=== PATIENT | female | born 1950 | race Caucasian/White ===

== ENCOUNTER 2017-02-27 14:15 | Observation (INO) | payer MEDICARE, OTHER ==
[2017-02-27 15:22] LABS: CHLORIDE,CL 109 mmol/L (98-110); SODIUM,NA 141 mmol/L (136-146)
--- NOTE | 2017-02-27 15:31 | CT ---
EXAMINATION: Non contrast CT head. Coronal and sagittal reformats. HISTORY: Pain FINDINGS: No evidence of intra or extra axial hemorrhage, mass, midline shift, hydrocephalus or edema. There is mild generalized atrophy. Prominent periventricular and subcortical white matter hypodensities ar e noted, nonspecific however likely represent small vessel ischemic changes. There is a left anterio r parafalcine small calcified meningioma. No hypoattenuation changes in the major vascular territories to suggest acute infarct. No evidence of substantial vascular calcifications. Paranasal sinuses and mastoid air cells are well aerated w ithout substantial findings. There is leftward deviation of the nasal septum. Pituitary fossa appears unremarkable. The calvarium is intact. No evidence of skull fracture. IMPRESSION: 1. No acute intracranial findings. 2. Prominent periventricular and subcortical white matter hypodensities, most likely representing sm all vessel ischemic changes.
[2017-02-27] MEDS ORDERED: Adenosine 6 MG/2 ML SDV IVPUSH ONE (16:11)
--- NOTE | 2017-02-27 16:30 | EDM.PDOC ---
ED HISTORY OF PRESENT ILLNESS - General Chief Complaint: Cardiovascular Problem Stated Complaint: POSS VERTIGO Time Seen by Provider: 02/27/17 14:48 Source of Information: Reports: Patient History Limitations: Reports: No limitations - History of Present Illness INITIAL COMMENTS - FREE TEXT/NARRATIVE: HISTORY AND PHYSICAL: History of present illness: [T7-year-old female with a history of hypertension with which he is noncompliant with her medication over the last year and a half, borderline diabetes and strong family history of coronary artery disease. Father had his first [place] in his 40s and of a third [place] in his 60s. Patient now complains of lightheadedness and chest pain patient has never had a cardiac workup, no history of stress test or catheterization. His never seen a senior game designer. She's had a history of rapid heart rate but she doesn't know what it was called however it's been going on for more than 20 years and she was only treated in the hospital once. She states that typically when she gets palpitations over the last 20 years she would just go to bed. Today patient had mid chest pressure or shortness of breath diaphoresis. No nausea or vomiting or radiation of pain. Denies productive cough or fever. No pleuritic pain. It is not worse with movement. Pain is now resolved. While being evaluated emergency department patient evolved a sudden onset of tachycardia with heart rate in the 160s consistent with SVT. Patient took 4 baby aspirin today. Review of systems: As per history of present illness and below otherwise all systems reviewed and negative. Past medical history: As per history of present illness and as reviewed below otherwise noncontributory. Surgical history: As per history of present illness and as reviewed below otherwise noncontributory. Social history: No reported history of drug or alcohol abuse. Family history: As per history of present illness and as reviewed below otherwise noncontributory. Physical exam: HEENT: Atraumatic, normocephalic, pupils reactive, negative for conjunctival pallor or scleral icterus, mucous membranes moist, throat clear, neck supple, nontender, trachea midline. Lungs: Clear to auscultation, breath sounds equal bilaterally, chest nontender. Heart: S1S2, regular, negative for clicks, rubs, or JVD. On arrival heart rate 80 his. On reevaluation after onset Tachycardia 160s regular rhythm narrow complex Abdomen: Soft, nondistended, nontender. Negative for masses or hepatosplenomegaly. Negative for costovertebral tenderness. Pelvis: Stable nontender. Genitourinary: Deferred. Rectal: Deferred. Extremities: Atraumatic, negative for cords or calf pain. Neurovascular unremarkable. Neuro: Awake, alert, oriented. Cranial nerves II through XII unremarkable. Cerebellum unremarkable. Motor and sensory unremarkable throughout. Exam nonfo Diagnostics: [EKG #1 at 2:40 PM normal sinus rhythm at 84 normal axis no STEMI EKG #2 at 1603 supraventricular tachycardia at [address] findings no STEMI EKG #3 at 1617 after conversion normal sinus rhythm at 97 no STEMI Chest x-ray chronic changes no acute disease interpreted by me] Therapeutics: [Procedure: Administration of adenosine 6 mg rapid IV push by ER M.D. Patient sitting comfortably with SVT on monitor. After procedure explained and verbal consent obtained 6 mg of adenosine rapid IV push was performed by me in IV infusion site immediately adjacent to percutaneous location. Neuro saline flush immediately administered upstream in IV in line system. Patient manifested Subsequent transient bradycardia with transition to normal sinus rhythm in the 90s. Other than the transient side effect of malaise typical for adenosine administration patient tolerated well no complications Impression: [Chest pain Supraventricular tachycardia Uncontrolled hypertension] Plan: [Signs and symptoms consistent with chest pain a possible cardiac etiology in a patient with multiple cardiac risk factors. While in ED patient evolved SVT which by her description she has a more than 2 decades history of. Adenosine administered rapid IV push with resolution of SVT and conversion to normal sinus rhythm. Troponin negative remainder workup unremarkable. Nitroglycerin paste applied to anterior chest wall to address hypertension. Case discussed with Dr. Ortega hospitalist dermatology nurse practitioner who is aware of history and findings and agrees with observation telemetry admission to his service for further workup treatment Definitive disposition and diagnosis as appropriate pending reevaluation and review of above. - Related Data Allergies/ADRs: Allergies Allergy/AdvReac Type Severity Reaction Status Date / Time No Known Allergies Allergy Verified 02/27/17 14:43 Home Meds: Home Meds . 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: - Past Surgical History Female Surgical History: Reports: Hysterectomy Social & Family History - Family History Family Medical History: Unobtainable - Tobacco Use Smoking Status *Q: Never Smoker - Caffeine Use Caffeine Use: Reports: None - Recreational Drug Use Recreational Drug Use: No ED ROS GENERAL - Review of Systems Review Of Systems: See Below (History of present illness) ED EXAM, GENERAL - Physical Exam Exam: See Below (History of present illness) Course - Vital Signs Last Recorded V/S: Last Vital Signs Temp 37.6 C 02/27/17 15:54 Pulse 98 02/27/17 16:18 Resp 16 02/27/17 16:18 BP 197/129 H 02/27/17 16:18 Pulse Ox 95 02/27/17 16:18 - Orders/Labs/Meds Orders: Active Orders 24 hr Category Date Time Status EKG Documentation Completion [RC] STAT Care 02/27/17 14:50 Active Peripheral IV Care [RC] . DIRECTED Care 02/27/17 14:50 Active Chest 1V Frontal [CR] Stat Exams 02/27/17 16:21 Taken UA W/MICROSCOPIC [URIN] Stat Lab 02/27/17 16:40 Received Peripheral IV Insertion Adult [OM.PC] Stat Oth 02/27/17 14:50 Ordered Labs: Laboratory Tests 02/27/17 02/27/17 02/27/17 Range/Units 14:45 14:45 14:45 WBC 10.57 (4.0-11.0) K/uL RBC 5.22 (4.30-5.90) M/uL Hgb 15.2 (12.0-16.0) g/dL Hct 46.4 H (36.0-46.0) % MCV 88.9 (80.0-98.0) fL MCH 29.1 (27.0-32.0) pg MCHC 32.8 (31.0-37.0) g/dL RDW Std Deviation 47.4 (28.0-62.0) fl RDW Coeff of Jose Ramon 15 (11.0-15.0) % Plt Count 390 (150-400) K/uL MPV 10.00 (7.40-12.00) fL Neut % (Auto) 62.2 (48.0-80.0) % Lymph % (Auto) 27.5 (16.0-40.0) % Hood % (Auto) 8.8 (0.0-15.0) % Eos % (Auto) 1.2 (0.0-7.0) % Baso % (Auto) 0.3 (0.0-1.5) % Neut # (Auto) 6.6 H (1.4-5.7) K/uL Lymph # (Auto) 2.9 H (0.6-2.4) K/uL Hood # (Auto) 0.9 H (0.0-0.8) K/uL Eos # (Auto) 0.1 (0.0-0.7) K/uL Baso # (Auto) 0.0 (0.0-0.1) K/uL Nucleated RBC % 0.0 /100WBC Nucleated RBCs # 0 K/uL Sodium 141 (136-146) mmol/L Potassium 4.1 (3.5-5.1) mmol/L Chloride 109 (98-110) mmol/L Carbon Dioxide 20 L (21-31) mmol/L BUN 19 (6.0-23.0) mg/dL Creatinine 0.8 (0.6-1.5) mg/dL Est Cr Clr Drug Dosing 62.13 mL/min Estimated GFR (MDRD) > 60.0 ml/min Glucose 115 H (60-110) mg/dL Calcium 10.4 (8.8-10.8) mg/dL Total Bilirubin 0.3 (0.1-1.5) mg/dL AST 10 (5-40) IU/L ALT 10 (8-54) IU/L Alkaline Phosphatase 80 (40-150) Troponin I < 0.10 (0.0-0.29) NG/ML Total Protein 7.4 (6.0-8.0) g/dL Albumin 4.1 (3.4-4.8) g/dL Globulin 3.3 (2.0-3.5) g/dL Albumin/Globulin Ratio 1.2 L (1.3-2.8) Free T4 1.10 (0.7-1.48) ng/dL TSH 3rd Generation 1.30 (0.47-5.0) uIU/mL Meds: Medications Discontinued Medications Generic Name Dose Route Start Last Admin Trade Name Freq PRN Reason Stop Dose Admin Adenosine 6 mg 02/27/17 16:11 02/27/17 16:17 Adenocard IVPUSH 02/27/17 16:12 6 mg NOW ONE Administration Nitroglycerin 1 gm 02/27/17 16:55 Nitro-Bid 2% TOP 02/27/17 16:56 ONETIME ONE Departure - Departure Time of Disposition: 16:33 Disposition: Refer to Observation Condition: good Clinical Impression: Supraventricular tachycardia, Chest pain, Uncontrolled hypertension - My Orders Last 24 Hours: My Active Orders 02/27/17 14:50 EKG Documentation Completion [RC] STAT Peripheral IV Care [RC] . DIRECTED Peripheral IV Insertion Adult [OM.PC] Stat 02/27/17 16:21 Chest 1V Frontal [CR] Stat 02/27/17 16:40 UA W/MICROSCOPIC [URIN] Stat - Assessment/Plan Last 24 Hours: My Active Orders 02/27/17 14:50 EKG Documentation Completion [RC] STAT Peripheral IV Care [RC] . DIRECTED Peripheral IV Insertion Adult [OM.PC] Stat 02/27/17 16:21 Chest 1V Frontal [CR] Stat 02/27/17 16:40 UA W/MICROSCOPIC [URIN] Stat
[2017-02-27] MEDS ORDERED: Nitroglycerin 2% Oint 1 GM UD Packet TOP ONE (16:55)
[2017-02-27] MEDS ORDERED: Labetalol 5 MG/ML 5 ML Syringe IVPUSH ONE (18:23)
--- NOTE | 2017-02-27 18:37 | PCM.HP ---
H&P History of Present Illness - General Date of Service: 02/27/17 Admit Problem/Dx: Admission Diagnosis/Problem Admission Diagnosis/Problem Chest pain Source of Information: Patient History Limitations: Reports: No limitations - History of Present Illness Initial Comments - Free Text/Narative: 67 y o woman with decades long history of bouts of tachycardia accompanied by weakness and near syncopal feeling causing her to lie down and rest. Spell can last as long as 2 days. She had one in the ER with monitor showing narrow complex tachycardia at 150 Administration of adenosine was followed by sinus ameena at 30 She is aware of high blood pressure, untreated, though she took several of her sons losartan She thinks she might be diabetic and has stopped drinking soda Onset of Symptoms: Reports: other (half her lie) Duration of Symptoms: Reports: Day(s):, Getting worse Location: Reports: other (armpits ache) Severity: moderate Improves with: Reports: Rest (and time) - Related Data Allergies/Adverse Reactions: Allergies Allergy/AdvReac Type Severity Reaction Status Date / Time No Known Allergies Allergy Verified 02/27/17 14:43 Home Medications: Home Meds Aspirin 81 mg PO 02/27/17 [History] Losartan [Cozaar] 50 mg PO 02/27/17 [History] Past Medical History HEENT History: Reports: None Cardiovascular History: Reports: Hypertension Respiratory History: Reports: None Gastrointestinal History: Reports: None 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: : 3 Para: 3 Psychiatric History: Reports: Depression Endocrine/Metabolic History: Reports: Other (see below) Other Endocrine/Metabolic History: Verbalized she feels she has diabetes, but not diagnosed Oncologic (Cancer) History: Reports: None - Infectious Disease History Infectious Disease History: Reports: Chicken pox - Past Surgical History Head Surgeries/Procedures: Reports: None HEENT Surgical History: Reports: Tonsillectomy Cardiovascular Surgical History: Reports: None Respiratory Surgical History: Reports: None Female Surgical History: Reports: Hysterectomy Endocrine Surgical History: Reports: None Social & Family History - Family History Family Medical History: Noncontributory Oncologic: Reports: Other (see below) (mother melanoma [id number]) - Tobacco Use Smoking Status *Q: Never Smoker Second Hand Smoke Exposure: No - Caffeine Use Caffeine Use: Reports: None - Recreational Drug Use Recreational Drug Use: No H&P Review of Systems - Review of Systems: Review Of Systems: See Below General: Reports: no symptoms HEENT: Reports: no symptoms Pulmonary: Reports: Shortness of Breath Cardiovascular: Reports: chest pain (axillae with tachycardia) Gastrointestinal: Reports: No symptoms Genitourinary: Reports: no symptoms Musculoskeletal: Reports: joint pain (knees) Exam - Exam Exam: See Below - Vital Signs Vital Signs: Last Vital Signs Temp 36.6 C 02/27/17 17:30 Pulse 88 02/27/17 17:37 Resp 16 02/27/17 17:37 BP 187/111 H 02/27/17 17:37 Pulse Ox 99 02/27/17 17:37 Weight: 101.423 kg - Exam General: alert, oriented HEENT: Conjunctiva clear Neck: supple, thyromegaly (questionsable, seems very full base of throat, also tender w/o distinct borders) Lungs: Decreased breath sounds Cardiovascular: regular rate Abdomen: normal bowel sounds (Female) Exam: Deferred Rectal (Female) Exam: Deferred Back Exam: normal inspection Psychiatric: alert, normal affect - Patient Data Lab Results last 24 hrs: Laboratory Results - last 24 hr 02/27/17 Range/Units 16:40 Urine Color YELLOW Urine Appearance CLEAR Urine pH 6.0 (5.0-8.0) Ur Specific [place] 1.015 (1.001-1.035) Urine Protein NEGATIVE (NEGATIVE) mg/dL Urine Glucose (UA) NEGATIVE (NEGATIVE) mg/dL Urine Ketones NEGATIVE (NEGATIVE) mg/dL Urine Occult Blood NEGATIVE (NEGATIVE) Urine Nitrite NEGATIVE (NEGATIVE) Urine Bilirubin NEGATIVE (NEGATIVE) Urine Urobilinogen 0.2 (<2.0) EU/dL Ur Leukocyte Esterase NEGATIVE (NEGATIVE) Urine RBC 0-1 (0-2/HPF) Urine WBC 0-2 (0-5/HPF) Ur Epithelial Cells OCCASIONAL (NONE-FEW) Urine Bacteria RARE (NEGATIVE) Result Diagrams: 02/27/17 14:45 02/27/17 14:45 *Q Meaningful Use (ADM) - VTE *Q VTE Criteria *Q: - Stroke *Q Stroke Criteria *Q: - AMI *Q AMI Criteria *Q: - Problem List (1) Obesity SNOMED Code(s): 370784002 ICD Code: E66.9 - OBESITY, UNSPECIFIED Status: Acute Current Visit: Yes Problem List Initiated/Reviewed/Updated: Yes Orders Last 24hrs: Active Orders 24 hr Category Date Time Status Labetalol [Normodyne] Med 02/27/17 18:23 Once 5 mg IVPUSH ONETIME ONE Medication Orders Labetalol HCl (Normodyne) 5 mg IVPUSH ONETIME ONE PRN Reason: Protocol Stop: 02/27/17 18:24 Assessment/Plan Comment:: hypertension documented SVT obesity will radiographer cardiac catheterization blood pressure control
[2017-02-27] MEDS ORDERED: Acetaminophen 325 MG Tab PO PRN (19:08)
[2017-02-27] MEDS: Enoxaparin 40 MG/0.4 ML Syringe SUBCUT SCH (20:19)
[2017-02-28] MEDS ORDERED: Labetalol 100 MG Tab PO ONE (04:00)
[2017-02-28] MEDS ORDERED: Labetalol 100 MG Tab PO SCH (09:00)
--- NOTE | 2017-02-28 10:55 | CR ---
EXAM DATE: 02/27/17 PATIENT'S AGE: 67 Patient: OTIS JIMENES Facility: [place], [place] Site . Site : [id number] Study: XRay Chest [id number]/2/2017 4:46:23 PM Ordering Physician: Rodger Sampson Final Report: INDICATION: Palpitations. TECHNIQUE: AP portable chest. COMPARISON: January 23, 2014. FINDINGS: Suboptimal radiograph. The image is underpenetrated. The lungs are grossly clear. There may be an esophageal hiatal hernia behind the heart. Overall heart size is toward the upper limit of normal accentuated by the portable technique. IMPRESSION: 1. Suboptimal radiograph. 2. Probable hiatal hernia behind the heart. 3. Repeat imaging including a lateral chest x-ray versus chest CT recommended. 4. Overall heart size is toward the upper limit of normal accentuated by the portable technique. Dictated by Luan Long MD @ 02/27/2017 4:56:53 PM Dictated by: uLan Long MD @ 02/27/2017 16:57:05 (Electronic Signature) Report Signed by Proxy. [facility] JO[facility] MEDICAL CENTERDebora
--- NOTE | 2017-02-28 11:01 | PCM.PN ---
- General Info Date of Service: 02/28/17 Admission Dx/Problem (Free Text): Admission Diagnosis/Problem Admission Diagnosis/Problem Chest pain Subjective Update: Sleeping this am, reports this morning had some palpitations. No telemetry evidence of SVT, slight tachycardia low 100s. No SOB or chest discomfort at time of assessment. Did have some during the feelings of palpitations. Functional Status: Reports: pain controlled, tolerating diet, ambulating, urinating - Review of Systems General: Reports: No Symptoms. Denies: Fever HEENT: Reports: no symptoms Pulmonary: Reports: no symptoms. Denies: shortness of breath, pleuritic chest pain, cough, sputum Cardiovascular: Reports: No Symptoms. Denies: Chest Pain, Palpitations Gastrointestinal: Reports: No symptoms. Denies: Abdominal pain, Nausea, Vomiting Genitourinary: Reports: no symptoms Musculoskeletal: Reports: no symptoms Skin: Reports: no symptoms Neurological: Reports: No Symptoms Psychiatric: Reports: no symptoms - Patient Data Vitals - most recent: Last Vital Signs Temp 99.1 F 02/28/17 08:24 Pulse 75 02/28/17 10:00 Resp 16 02/28/17 08:24 BP 148/81 H 02/28/17 10:00 Pulse Ox 93 L 02/28/17 08:24 Weight - most recent: 101.423 kg I&O - last 24 hours: Intake & Output 02/27/17 02/28/17 02/28/17 22:59 06:59 14:59 Intake Total 25 Output Total 750 Balance -725 Lab Results last 24 hrs: Laboratory Results - last 24 hr 02/27/17 02/28/17 02/28/17 Range/Units 16:40 04:25 05:21 Magnesium 1.9 (1.5-2.3) mEq/L Troponin I < 0.10 (0.0-0.29) NG/ML Urine Color YELLOW Urine Appearance CLEAR Urine pH 6.0 (5.0-8.0) Ur Specific [place] 1.015 (1.001-1.035) Urine Protein NEGATIVE (NEGATIVE) mg/dL Urine Glucose (UA) NEGATIVE (NEGATIVE) mg/dL Urine Ketones NEGATIVE (NEGATIVE) mg/dL Urine Occult Blood NEGATIVE (NEGATIVE) Urine Nitrite NEGATIVE (NEGATIVE) Urine Bilirubin NEGATIVE (NEGATIVE) Urine Urobilinogen 0.2 (<2.0) EU/dL Ur Leukocyte Esterase NEGATIVE (NEGATIVE) Urine RBC 0-1 (0-2/HPF) Urine WBC 0-2 (0-5/HPF) Ur Epithelial Cells OCCASIONAL (NONE-FEW) Urine Bacteria RARE (NEGATIVE) Med Orders - Current: Current Medications Acetaminophen (Tylenol) 650 mg PO Q4H PRN PRN Reason: Pain (Mild 1-3)/fever Enoxaparin Sodium (Lovenox) 40 mg SUBCUT Q24H [facility] Last Admin: 02/27/17 20:19 Dose: 40 mg Labetalol HCl (Normodyne) 100 mg PO BID [facility] Last Admin: 02/28/17 10:00 Dose: 100 mg Discontinued Medications Adenosine (Adenocard) 6 mg IVPUSH NOW ONE Stop: 02/27/17 16:12 Last Admin: 02/27/17 16:17 Dose: 6 mg Labetalol HCl (Normodyne) 5 mg IVPUSH ONETIME ONE PRN Reason: Protocol Stop: 02/27/17 18:24 Last Admin: 02/27/17 18:41 Dose: 5 mg Labetalol HCl (Normodyne) 50 mg PO ONETIME ONE Stop: 02/28/17 04:01 Last Admin: 02/28/17 04:12 Dose: 50 mg Nitroglycerin (Nitro-Bid 2%) 1 gm TOP ONETIME ONE Stop: 02/27/17 16:56 Last Admin: 02/27/17 17:02 Dose: 1 gm - Exam General: alert, oriented, cooperative Lungs: Clear to auscultation, Normal respiratory effort Cardiovascular: Regular Rate, Regular Rhythm Abdomen: bowel sounds present, soft, no tenderness, no distension Extremities: no edema, normal pulses, no tenderness/swelling Skin: warm, dry, intact Neurological: no new focal deficit Psy/Mental Status: alert, normal affect, normal mood - Problem List & Annotations (1) Supraventricular tachycardia SNOMED Code(s): 4739303 Code(s): I47.1 - SUPRAVENTRICULAR TACHYCARDIA Status: Acute Current Visit : Yes (2) Chest pain SNOMED Code(s): 92139039 Code(s): R07.9 - CHEST PAIN, UNSPECIFIED Status: Acute Current Visit: Yes Qualifiers: Chest pain type: unspecified Qualified Code(s): R07.9 - Chest pain, unspecified (3) Obesity SNOMED Code(s): 389108609 Code(s): E66.9 - OBESITY, UNSPECIFIED Status: Chronic Current Visit: Yes (4) Uncontrolled hypertension SNOMED Code(s): 22687575 Code(s): I10 - ESSENTIAL (PRIMARY) HYPERTENSION Status: Chronic Current Visit: Yes - Problem List Review Problem List Initiated/Reviewed/Updated: Yes - My Orders Last 24 Hours: My Active Orders 02/28/17 08:08 Consult to Physician [CONS] Routine 02/28/17 08:09 Notify Provider Consults [RC] ASDIRECTED - Plan Plan:: This 67 year old female admitted with chest discomfort and noted SVT in ED 1. SVT: Troponins negative. Given Adenosine in ED with return to SR 90s. classroom monitor reveals SR to ST low 100s. Will consult Dr Hawthorne. Labetolol ordered 100 mg BID. 2. HTN: Will monitor on Labetolol has not taken medication for years, since Dr Ortiz left and has not followed up. VTE: Lovenox. Dispo: today or tomorrow am pending cardiology consultation
[2017-02-28] MEDS: Metoprolol Tartrate 50 MG Tab PO SCH ×2 (14:46→20:46)
[2017-02-28] MEDS ORDERED: amLODIPine 5 MG Tab PO SCH (16:30)
[2017-02-28] MEDS: Enoxaparin 40 MG/0.4 ML Syringe SUBCUT SCH (20:49)
--- NOTE | 2017-02-28 21:59 | CONS ---
DATE OF CONSULTATION: DATE OF : 1950 PRIMARY CARE PHYSICIAN: None PCP REASON FOR CONSULTATION: Tachycardia. HISTORY OF PRESENT ILLNESS: This is a 67-year-old female, who has had a long history of tachycardia, but never been seen by any doctor who presented to the hospital at this time due to feeling dizzy, palpitation, shortness of breath. In the emergency room, she was found to have tachycardia, narrow complex tachycardia with a heart rate of 150 and she was given adenosine and she was converted to sinus bradycardia at 30s. She also initially was found to be hypertensive and she was given labetalol and right now the blood pressure is better controlled, but is still high in the range of 150 to 160. She denied a history of SVT, however, she has symptom of palpitation for years, never been seen by a doctor. She stated that when she comes to the emergency room, she was told to do the vagal maneuver, however, if not succeeded to convert to sinus rhythm. Currently, she lives in [place] and because she has to fix her plumbing in her house and she is not very active. She can take care of herself, but she cannot take care of her house. She can only walk for about a block and gets short of breath and with the palpitation that she feels, she also feels a pounding heart as well as chest pressure. She stated that her chest pressure was upper chest wall radiating to her neck, her jaws, and her arms lasting for 15 minute. She never had a stress test before. She has a history of hypertension, she is supposed to be taking a course, however, she has not taken it for a long time and sometime she gets leg swelling as well. No headache. No fever. No nausea. No vomiting. REVIEW OF SYSTEMS: 12-point review of systems seem to be negative except as indicated in HPI. PAST MEDICAL HISTORY: Including hypertension. SOCIAL HISTORY: She denies smoking, drinking, or drug use. FAMILY HISTORY: Father had a history of heart attack at age of 70. CURRENT MEDICATION: Include, labetalol 100 mg twice a day. PHYSICAL EXAMINATION: VITAL SIGNS: Blood pressure 144/66, heart rate of 68. Temperature 37.3, O2 saturation 93 on 2 L. HEENT: No pallor. No jaundice. No JVD. HEART: Normal S1, S2. No murmur. LUNGS: Clear. ABDOMEN: Soft, nontender. Bowel sounds are present. No hepatosplenomegaly. EXTREMITIES: Legs have questionable edema. INVESTIGATIONS: CBC showed WBC of 10, hematocrit of 46, hemoglobin 15, platelet is 390. Sodium 141, potassium 4.1, chloride 109 bicarb 20, BUN 19, creatinine 0.8, glucose 115, magnesium 1.9. Troponin is negative. Free T4 is 1.1. Urinalysis is negative. EKG shows sinus rhythm, but EKG in emergency room shows narrow complex tachycardia, most likely AVNRT. ASSESSMENT/PLAN: This is a 67-year-old female, presented to hospital with SVT, symptomatic with chest pain as well. Because of the chest pain with fast heart rate, I would recommend to do a stress test, but this can be done as an outpatient and I would also do an echocardiogram. Regarding her tachycardia and her blood pressure, I will start her on a beta jennifer and possibly the calcium channel jennifer as well. I will follow her. Thank you for the consultation. CHRISTELLE MCDONALD /[id number]
[2017-03-01] MEDS ORDERED: amLODIPine 5 MG Tab PO SCH (09:00)
[2017-03-01] MEDS: Metoprolol Tartrate 50 MG Tab PO SCH (09:26)
[2017-03-01 09:32] VITALS: BP 158/111
--- NOTE | 2017-03-01 10:48 | PCM.DCSUM1 ---
Discharge Summary - Hospital Course Brief History: This 67 year old woman with pmh of HTN uncontrolled and long history of bouts of tachycardia accompanied by weakness and near syncopal feeling causing her to lie down and rest. Spells can last as long as 2 days. She had one in the ER with monitor showing narrow complex tachycardia at 150. Administration of adenosine was followed by sinus ameena at 30 She is aware of high blood pressure, untreated, though she took several of her sons losartan She thinks she might be diabetic and has stopped drinking soda. In the ED labwork WNL, troponin negative, and Ua negative. CXR showed heart of upper limit size. She was admitted due to chest discomfort and SVT with consultation to Cardiology. - Discharge Data Discharge Date: 03/01/17 Discharge Disposition: Home, Self-Care 01 Condition: Good - Discharge Diagnosis/Problem(s) (1) Supraventricular tachycardia SNOMED Code(s): 5068082 ICD Code: I47.1 - SUPRAVENTRICULAR TACHYCARDIA Status: Acute Current Visit: Yes (2) Chest pain SNOMED Code(s): 63130592 ICD Code: R07.9 - CHEST PAIN, UNSPECIFIED Status: Resolved Current Visit : Yes Qualifiers: Chest pain type: unspecified Qualified Code(s): R07.9 - Chest pain, unspecified (3) Obesity SNOMED Code(s): 621025881 ICD Code: E66.9 - OBESITY, UNSPECIFIED Status: Chronic Current Visit: Yes (4) Uncontrolled hypertension SNOMED Code(s): 25457805 ICD Code: I10 - ESSENTIAL (PRIMARY) HYPERTENSION Status: Chronic Current Visit: Yes - Patient Summary/Data Consults: Consultations 02/28/17 08:08 Consult to Physician [CONS] Routine - Patient Instructions Diet: Heart Healthy Diet Activity: As Tolerated, No Strenuous Activities (until stress test with Dr. Hawthorne) Driving: May Drive Today Notify Provider of: Fever, Increased Pain, Swelling and Redness, Drainage, Nausea and/or Vomiting - Discharge Plan Prescriptions/Med Rec: Metoprolol Tartrate [Lopressor] 50 mg PO Q12HR #60 tablet amLODIPine [Norvasc] 10 mg PO BEDTIME #30 tablet Home Medications: Home Meds Aspirin 81 mg PO 02/27/17 [History] Metoprolol Tartrate [Lopressor] 50 mg PO Q12HR #60 tablet 03/01/17 [Rx] amLODIPine [Norvasc] 10 mg PO BEDTIME #30 tablet 03/01/17 [Rx] Patient Handouts: Paroxysmal Supraventricular Tachycardia, [id number], Metoprolol tablets, Nonspecific Chest Pain, [id number], Amlodipine tablets Referrals: [facility] [Outside] [facility] [Outside] Johnny Hawthorne MD [Physician] - 03/12/17 9:00 am Kim Saab DO [Physician] - 03/12/17 10:00 am - Discharge Summary/Plan Comment DC Time >30 min.: No Discharge Summary/Plan Comment: Discharge diagnoses SVT Chest discomfort-resolved uncontrolled HTN Obesity Genia was admitted and monitored on telemetry. Troponins negative, no further SVT events. Labetolol was initially started and then transitioned to Metoprolol by Cardiology. Dr. Hawthorne also started Norvasc for BP. She has been free of chest discomfort since admission. A1c noted to be 6.1 Triglycerides 308, LDL 130, and HDL 31. Encouraged healthy lifestyle changes. Dr Hawthorne will follow up with pending ECHO and arrange for stress test as an outpatient. I will also arrange appointment with a new PCP for her to establish care, she has requested Dr Saab. HR remains SR, BP has decreased to 140/90s from 200s/ 100s. She will be discharged home today. ECHO pending. Appointments are arranged with Dr. Hawthorne and Dr Saab. She is to return to ED or clinic if concerns should arise. - General Info Date of Service: 03/01/17 Admission Dx/Problem (Free Text: Admission Diagnosis/Problem Admission Diagnosis/Problem Chest pain Subjective Update: Feeling much better today. no palpitations,no telemetry evidence of SVT. No SOB or chest discomfort at time of assessment. Eager for discharge home today. Functional Status: Reports: pain controlled, tolerating diet, ambulating - Review of Systems General: Reports: No Symptoms. Denies: Fever HEENT: Reports: no symptoms. Denies: ear pain, sinus congestion, sore throat, visual changes Pulmonary: Reports: no symptoms. Denies: shortness of breath, cough, sputum Cardiovascular: Reports: No Symptoms. Denies: Chest Pain, Palpitations, Edema Gastrointestinal: Reports: No symptoms. Denies: Abdominal pain, Nausea, Vomiting Genitourinary: Reports: no symptoms Musculoskeletal: Reports: no symptoms Skin: Reports: no symptoms Neurological: Reports: No Symptoms Psychiatric: Reports: no symptoms - Patient Data Vitals - Most Recent: Last Vital Signs Temp 97.5 F 03/01/17 08:00 Pulse 72 03/01/17 09:26 Resp 18 03/01/17 08:00 BP 149/99 H 03/01/17 09:26 Pulse Ox 94 L 03/01/17 08:00 Weight - Most Recent: 101.423 kg I&O - Last 24 hours: Intake & Output 02/28/17 03/01/17 03/01/17 22:59 06:59 14:59 Intake Total 300 500 Output Total 400 350 Balance -100 150 Lab Results - Last 24 hrs: Laboratory Results - last 24 hr 02/28/17 03/01/17 03/01/17 Range/Units 11:20 04:25 04:25 Hemoglobin A1c 6.1 H (0.0-6.0) % Troponin I < 0.10 (0.0-0.29) NG/ML Triglycerides 308 H (10-190) mg/dL Cholesterol 223 (131-240) mg/dL LDL Cholesterol, Calc 130 (60-180) mg/dL VLDL Cholesterol 62 H (5-55) mg/dL HDL Cholesterol 31 L (40-80) mg/dL Cholesterol/HDL Ratio 7.2 H (3.3-6.0) Med Orders - Current: Current Medications Acetaminophen (Tylenol) 650 mg PO Q4H PRN PRN Reason: Pain (Mild 1-3)/fever Last Admin: 02/28/17 15:09 Dose: 650 mg Amlodipine Besylate (Norvasc) 10 mg PO DAILY [facility] Last Admin: 03/01/17 09:26 Dose: 10 mg Enoxaparin Sodium (Lovenox) 40 mg SUBCUT Q24H [facility] Last Admin: 02/28/17 20:49 Dose: 40 mg Metoprolol Tartrate (Lopressor) 50 mg PO Q12HR [facility] Last Admin: 03/01/17 09:26 Dose: 50 mg Discontinued Medications Adenosine (Adenocard) 6 mg IVPUSH NOW ONE Stop: 02/27/17 16:12 Last Admin: 02/27/17 16:17 Dose: 6 mg Amlodipine Besylate (Norvasc) 5 mg PO DAILY [facility] Last Admin: 02/28/17 16:29 Dose: 5 mg Labetalol HCl (Normodyne) 5 mg IVPUSH ONETIME ONE PRN Reason: Protocol Stop: 02/27/17 18:24 Last Admin: 02/27/17 18:41 Dose: 5 mg Labetalol HCl (Normodyne) 50 mg PO ONETIME ONE Stop: 02/28/17 04:01 Last Admin: 02/28/17 04:12 Dose: 50 mg Labetalol HCl (Normodyne) 100 mg PO BID [facility] Last Admin: 02/28/17 10:00 Dose: 100 mg Nitroglycerin (Nitro-Bid 2%) 1 gm TOP ONETIME ONE Stop: 02/27/17 16:56 Last Admin: 02/27/17 17:02 Dose: 1 gm - Exam Quality Assessment: Denies: supplemental oxygen General: Reports: alert, oriented, cooperative HEENT: Reports: Pupils equal, Pupils reactive, EOMI, Mucous membr. moist/pink Neck: Reports: supple Lungs: Reports: Clear to auscultation, Normal respiratory effort Cardiovascular: Reports: Regular Rate, Regular Rhythm, No Murmurs Abdomen: Reports: bowel sounds present, soft, no tenderness, no distension Extremities: Reports: no edema, normal pulses Neurological: Reports: no new focal deficit Psy/Mental Status: Reports: alert, normal affect, normal mood *Q Meaningful Use (DIS) - VTE *Q VTE Criteria *Q: - Stroke *Q Stroke Criteria *Q: - AMI *Q AMI Criteria *Q:
--- NOTE | 2017-03-01 12:46 | PCM.PN ---
- General Info Admission Dx/Problem (Free Text): 67F HLP HTN SVT Subjective Update: feels ok BP was better controlled with metoprolol 50 BID, amlodipine 10 Functional Status: Reports: pain controlled - Review of Systems General: Reports: No Symptoms HEENT: Reports: no symptoms Pulmonary: Reports: no symptoms Cardiovascular: Reports: No Symptoms Gastrointestinal: Reports: No symptoms Genitourinary: Reports: no symptoms Musculoskeletal: Reports: no symptoms - Patient Data Vitals - most recent: Last Vital Signs Temp 36.4 C 03/01/17 08:00 Pulse 72 03/01/17 09:26 Resp 18 03/01/17 08:00 BP 149/99 H 03/01/17 09:26 Pulse Ox 94 L 03/01/17 08:00 Weight - most recent: 101.423 kg I&O - last 24 hours: Intake & Output 02/28/17 03/01/17 03/01/17 22:59 06:59 14:59 Intake Total 300 500 Output Total 400 350 Balance -100 150 Lab Results last 24 hrs: Laboratory Results - last 24 hr 03/01/17 03/01/17 Range/Units 04:25 04:25 Hemoglobin A1c 6.1 H (0.0-6.0) % Triglycerides 308 H (10-190) mg/dL Cholesterol 223 (131-240) mg/dL LDL Cholesterol, Calc 130 (60-180) mg/dL VLDL Cholesterol 62 H (5-55) mg/dL HDL Cholesterol 31 L (40-80) mg/dL Cholesterol/HDL Ratio 7.2 H (3.3-6.0) Med Orders - Current: Current Medications Acetaminophen (Tylenol) 650 mg PO Q4H PRN PRN Reason: Pain (Mild 1-3)/fever Last Admin: 02/28/17 15:09 Dose: 650 mg Amlodipine Besylate (Norvasc) 10 mg PO DAILY [facility] Last Admin: 03/01/17 09:26 Dose: 10 mg Enoxaparin Sodium (Lovenox) 40 mg SUBCUT Q24H [facility] Last Admin: 02/28/17 20:49 Dose: 40 mg Metoprolol Tartrate (Lopressor) 50 mg PO Q12HR [facility] Last Admin: 03/01/17 09:26 Dose: 50 mg Discontinued Medications Adenosine (Adenocard) 6 mg IVPUSH NOW ONE Stop: 02/27/17 16:12 Last Admin: 02/27/17 16:17 Dose: 6 mg Amlodipine Besylate (Norvasc) 5 mg PO DAILY [facility] Last Admin: 02/28/17 16:29 Dose: 5 mg Labetalol HCl (Normodyne) 5 mg IVPUSH ONETIME ONE PRN Reason: Protocol Stop: 02/27/17 18:24 Last Admin: 02/27/17 18:41 Dose: 5 mg Labetalol HCl (Normodyne) 50 mg PO ONETIME ONE Stop: 02/28/17 04:01 Last Admin: 02/28/17 04:12 Dose: 50 mg Labetalol HCl (Normodyne) 100 mg PO BID [facility] Last Admin: 02/28/17 10:00 Dose: 100 mg Nitroglycerin (Nitro-Bid 2%) 1 gm TOP ONETIME ONE Stop: 02/27/17 16:56 Last Admin: 02/27/17 17:02 Dose: 1 gm - Exam General: alert, oriented HEENT: Pupils equal, Pupils reactive Neck: supple Lungs: Clear to auscultation Cardiovascular: Regular Rate Abdomen: bowel sounds present (Female) Exam: Normal external exam Back Exam: normal inspection EKG INTERPRETATION Rhythm: NSR - Problem List Review Problem List Initiated/Reviewed/Updated: Yes - My Orders Last 24 Hours: My Active Orders 03/01/17 09:00 amLODIPine [Norvasc] 10 mg PO DAILY 03/01/17 16:20 Echo Comp wo Cont [US] Routine - Plan Plan:: 67F SVT HTN HLP preDM, with chest pain during SVT 1. SVT will continue metoprolol 50 BID 2. HTN will continue metoprolol 50 BID, amlodipine 10 3 HLP will recommend crestor 10 daily 4. CP with SVT will schedule for lexiscan as outpt
--- NOTE | 2017-03-05 18:54 | ECHO ---
The echocardiogram report can be seen in this patient's EMR in the Reports section. YANG
== END 2017-03-01 15:35 | disposition home or self-care (01) ==
LOC: MW.ED 14:15 → MW.MS 16:30 → UNDOADMOB 16:34 → MW.MS 16:34
PROVIDERS: ADMIT Internal Medicine; ATTEND Internal Medicine
DX: I47.1 Supraventricular tachycardia (principal); R07.9 Chest pain, unspecified; E66.9 Obesity, unspecified; R42 Dizziness and giddiness; I10 Essential (primary) hypertension; Z79.82 Long term (current) use of aspirin; Z79.899 Other long term (current) drug therapy; Z90.710 Acquired absence of both cervix and uterus; Z90.89 Acquired absence of other organs; Z82.49 Family history of ischemic heart disease and other diseases of the circulatory system
CPT/HCPCS: 36415; 70450; 71010; 80053; 80061; 81001; 83036; 83735; 84439; 84443; 84484; 85025; 93005; 93306; 96372; 96374; 96375; 99285; A9270; G0378; J0153; J1650

== ENCOUNTER 2017-07-05 10:32 | Emergency (ER) | payer MEDICARE ==
[2017-07-05] MEDS ORDERED: Acetaminophen/oxyCODONE 325-10 MG Tab PO ONE (10:43)
--- NOTE | 2017-07-05 10:55 | EDM.PDOC ---
ED HPI GENERAL MEDICAL PROBLEM - General Chief Complaint: General Stated Complaint: HIGH BLOOD PREESURE Time Seen by Provider: 07/05/17 10:49 Source of Information: Reports: Patient, Family History Limitations: Reports: No Limitations - History of Present Illness INITIAL COMMENTS - FREE TEXT/NARRATIVE: \History of present illness: [67-year-old female comes in status post visit to dentist. Patient was quite hypertensive at [place] and he felt unable to do her oral surgery secondary to her uncontrolled blood pressure and sent her directly to us calling us to apprise her of her impending arrival. Upon arrival patients blood pressure was less than the 212/148 in the 200/100 obtained in the dentist office. Patient indicates the only pain she has is her teeth and indicates that she has been having chronic dizziness and thought it was due to uncontrolled hypertension.] Review of systems: As per history of present illness and below otherwise all systems reviewed and negative. Past medical history: As per history of present illness and as reviewed below otherwise noncontributory. Surgical history: As per history of present illness and as reviewed below otherwise noncontributory. Social history: No reported history of drug or alcohol abuse. Family history: As per history of present illness and as reviewed below otherwise noncontributory. Physical exam: HEENT: Atraumatic, normocephalic, pupils reactive, negative for conjunctival pallor or scleral icterus, mucous membranes moist, throat clear, neck supple, nontender, trachea midline. Lungs: Clear to auscultation, breath sounds equal bilaterally, chest nontender. Heart: S1S2, regular, negative for clicks, rubs, or JVD. Abdomen: Soft, nondistended, nontender. Negative for masses or hepatosplenomegaly. Negative for costovertebral tenderness. Pelvis: Stable nontender. Genitourinary: Deferred. Rectal: Deferred. Extremities: Atraumatic, negative for cords or calf pain. Neurovascular unremarkable. Neuro: Awake, alert, oriented. Cranial nerves II through XII unremarkable. Cerebellum unremarkable. Motor and sensory unremarkable throughout. Exam nonfocal. Diagnostics: [CBC, CMP, EKG] Therapeutics: [Percocet, Augmentin, Zofran] Impression: [#1 hypertension, #2 dental caries with abscess and pain #3 vertigo] Plan: [Follow-up appointment scheduled with Dr. Nardozzi tomorrow for blood pressure control as well as vertigo] Definitive disposition and diagnosis as appropriate pending reevaluation and review of above. - Related Data Allergies Allergy/AdvReac Type Severity Reaction Status Date / Time No Known Allergies Allergy Verified 07/05/17 10:36 Home Meds: Home Meds Aspirin 81 mg PO Q8HR 02/27/17 [History] Metoprolol Tartrate [Lopressor] 50 mg PO Q12HR #60 tablet 03/01/17 [Rx] Rosuvastatin [Crestor] 10 mg PO DAILY #30 tablet 03/01/17 [Rx] amLODIPine [Norvasc] 10 mg PO BEDTIME #30 tablet 03/01/17 [Rx] Carbamide Peroxide [Debrox] 4 drop OT DAILY #1 bottle 07/05/17 [Rx] Meclizine [Antivert] 25 mg PO Q6H #30 tablet 07/05/17 [Rx] Past Medical History HEENT History: Reports: None Cardiovascular History: Reports: Hypertension Respiratory History: Reports: None Gastrointestinal History: Reports: None 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: Psychiatric History: Reports: Depression Endocrine/Metabolic History: Reports: Other (See Below) Other Endocrine/Metabolic History: Verbalized she feels she has diabetes, but not diagnosed Oncologic (Cancer) History: Reports: None - Infectious Disease History Infectious Disease History: Reports: Chicken Pox - Past Surgical History Head Surgeries/Procedures: Reports: None HEENT Surgical History: Reports: Tonsillectomy Cardiovascular Surgical History: Reports: None Respiratory Surgical History: Reports: None Female Surgical History: Reports: Hysterectomy Social & Family History - Family History Family Medical History: Noncontributory Oncologic: Reports: Other (See Below) - Tobacco Use Smoking Status *Q: Never Smoker Second Hand Smoke Exposure: No - Caffeine Use Caffeine Use: Reports: None - Recreational Drug Use Recreational Drug Use: No ED ROS GENERAL - Review of Systems Review Of Systems: See Below (See history of present illness) ED EXAM, GENERAL - Physical Exam Exam: See Below (The history of present illness) Course - Vital Signs Last Recorded V/S: Last Vital Signs Temp 36.8 C 07/05/17 11:55 Pulse 83 07/05/17 11:55 Resp 12 07/05/17 11:55 BP 159/92 H 07/05/17 11:55 Pulse Ox 92 L 07/05/17 11:55 - Orders/Labs/Meds Orders: Active Orders 24 hr Category Date Time Status EKG Documentation Completion [RC] STAT Care 07/05/17 10:34 Active Labs: Laboratory Tests 07/05/17 07/05/17 Range/Units 10:44 10:44 WBC 11.49 H (4.0-11.0) K/uL RBC 5.33 (4.30-5.90) M/uL Hgb 15.6 (12.0-16.0) g/dL Hct 47.4 H (36.0-46.0) % MCV 88.9 (80.0-98.0) fL MCH 29.3 (27.0-32.0) pg MCHC 32.9 (31.0-37.0) g/dL RDW Std Deviation 47.4 (28.0-62.0) fl RDW Coeff of Jose Ramon 15 (11.0-15.0) % Plt Count 408 H (150-400) K/uL MPV 10.00 (7.40-12.00) fL Neut % (Auto) 59.9 (48.0-80.0) % Lymph % (Auto) 29.5 (16.0-40.0) % [place] % (Auto) 9.0 (0.0-15.0) % Eos % (Auto) 1.3 (0.0-7.0) % Baso % (Auto) 0.3 (0.0-1.5) % Neut # (Auto) 6.9 H (1.4-5.7) K/uL Lymph # (Auto) 3.4 H (0.6-2.4) K/uL [place] # (Auto) 1.0 H (0.0-0.8) K/uL Eos # (Auto) 0.2 (0.0-0.7) K/uL Baso # (Auto) 0.0 (0.0-0.1) K/uL Nucleated RBC % 0.0 /100WBC Nucleated RBCs # 0 K/uL Sodium 141 (136-146) mmol/L Potassium 3.6 (3.5-5.1) mmol/L Chloride 107 (98-110) mmol/L Carbon Dioxide 22 (21-31) mmol/L BUN 17 (6.0-23.0) mg/dL Creatinine 0.8 (0.6-1.5) mg/dL Est Cr Clr Drug Dosing 57.31 mL/min Estimated GFR (MDRD) > 60.0 ml/min Glucose 134 H (60-110) mg/dL Calcium 9.7 (8.8-10.8) mg/dL Total Bilirubin 0.6 (0.1-1.5) mg/dL AST 10 (5-40) IU/L ALT 12 (8-54) IU/L Alkaline Phosphatase 103 (40-150) Total Protein 7.9 (6.0-8.0) g/dL Albumin 4.1 (3.4-4.8) g/dL Globulin 3.8 H (2.0-3.5) g/dL Albumin/Globulin Ratio 1.1 L (1.3-2.8) Meds: Medications Discontinued Medications Generic Name Dose Route Start Last Admin Trade Name Freq PRN Reason Stop Dose Admin Amoxicillin/Clavulanate Potassium 1 tab 07/05/17 10:56 07/05/17 11:24 Augmentin 875 Mg/125 Mg PO 07/05/17 10:57 1 tab ONETIME ONE Administration Ondansetron HCl 4 mg 07/05/17 11:27 07/05/17 11:30 Zofran Odt PO 07/05/17 11:28 4 mg ONETIME ONE Administration Oxycodone/Acetaminophen 1 tab 07/05/17 10:43 07/05/17 10:53 Percocet 325-10 Mg PO 07/05/17 10:44 1 tab ONETIME ONE Administration Departure - Departure Time of Disposition: 12:26 Disposition: Home, Self-Care 01 Condition: Good Clinical Impression: Uncontrolled hypertension, Vertigo - Discharge Information Prescriptions: Carbamide Peroxide [Debrox] 4 drop OT DAILY #1 bottle Meclizine [Antivert] 25 mg PO Q6H #30 tablet Forms: ED Department Discharge Additional Instructions: The following information is given to patients seen in the emergency department who are being discharged to home. This information is to outline your options for follow-up care. We provide all patients seen in our emergency department with a follow-up referral. The need for follow-up, as well as the timing and circumstances, are variable depending upon the specifics of your emergency department visit. If you don't have a primary care physician on staff, we will provide you with a referral. We always advise you to contact your personal physician following an emergency department visit to inform them of the circumstance of the visit and for follow-up with them and/or the need for any referrals to a consulting specialist. The emergency department will also refer you to a specialist when appropriate. This referral assures that you have the opportunity for follow-up care with a specialist. All of these measure are taken in an effort to provide you with optimal care, which includes your follow-up. Under all circumstances we always encourage you to contact your private physician who remains a resource for coordinating your care. When calling for follow-up care, please make the office aware that this follow-up is from your recent emergency room visit. If for any reason you are refused follow-up, please contact the [facility] Emergency Department at and asked to speak to the emergency department charge nurse. You have an appointment with Dr. Saab tomorrow 07/06 at 2:45 PM Please take your blood pressure medicine before you go Please discuss her chronic vertigo issues with her and let her know your seen in the ER Please fill your prescriptions and take them as directed Return to ED as needed as directed - My Orders Last 24 Hours: My Active Orders 07/05/17 10:34 EKG Documentation Completion [RC] STAT - Assessment/Plan Last 24 Hours: My Active Orders 07/05/17 10:34 EKG Documentation Completion [RC] STAT
[2017-07-05] MEDS ORDERED: Amoxicillin/Clavulanate K 875-125 MG Tab PO ONE (10:56)
[2017-07-05 11:24] LABS: CHLORIDE,CL 107 mmol/L (98-110); SODIUM,NA 141 mmol/L (136-146)
--- NOTE | 2017-07-05 11:25 | PCM.SN ---
- Free Text/Narrative Note: This is Dr. Oscar dictating an addendum note as supervising physician on this case. I was called by the oral surgeon regarding this patient and his concerns about her blood pressure elevation although he said she did not have symptomatology. She told him that she had not been on her medications for quite some time. She told us that she had just recently refilled her medications and took medications today for the first time in a long time. The patient had a scheduled appointment at [facility] on July [address] Saab; I contacted this provider @[phone] and discussed this case with her and she has agreed to see the patient tomorrow at 2:45 PM in order to address her blood pressure and medication adjustments area patient was given antibiotics and pain medication by the oral surgeon to take at home to address that problem. Please note that the repeat blood pressure currently is 159/92. We will plan on discharge home with advice to take her newly refilled medications and follow-up tomorrow.
[2017-07-05] MEDS ORDERED: Ondansetron 4 MG Tab.DIS PO ONE (11:27)
[2017-07-05 13:09] VITALS: BP 112/82
== END 2017-07-05 12:35 | disposition home or self-care (01) ==
LOC: MW.ED 10:32
DX: I10 Essential (primary) hypertension (principal); K04.7 Periapical abscess without sinus; K02.9 Dental caries, unspecified; F32.9 Major depressive disorder, single episode, unspecified; Z79.82 Long term (current) use of aspirin; Z79.899 Other long term (current) drug therapy; Z90.710 Acquired absence of both cervix and uterus; Z98.890 Other specified postprocedural states
CPT/HCPCS: 36415; 80053; 85025; 93005; 99284; A9270; 99283

== ENCOUNTER 2023-02-23 23:31 | Emergency (ER) | payer MEDICARE ==
[2023-02-23] MEDS ORDERED: Sodium Chloride 0.9% 2.5 ML Syringe FLUSH PRN (23:49)
[2023-02-23] MEDS ORDERED: HYDROmorphone 1 MG/ML Syringe IVPUSH ONE (23:49)
[2023-02-23] MEDS ORDERED: Sodium Chloride 0.9% 10 ML Syringe FLUSH PRN (23:49)
[2023-02-23] MEDS ORDERED: Apixaban 5 MG Tab PO ONE (23:53)
[2023-02-23] MEDS ORDERED: Metoprolol Succinate 25 MG Tab.ER PO ONE (23:53)
[2023-02-24] MEDS ORDERED: Iopamidol 755 MG/ML 500 ML Multipack Bottle IVPUSH ONE (00:32)
[2023-02-24 00:51] LABS: CARBON DIOXIDE,CO2 24.9 mmol/L (21.0-32.0); POTASSIUM,K 3.4 mmol/L (3.5-5.1)
[2023-02-24 02:50] VITALS: BP 155/108; PULSE 92
== END 2023-02-24 02:50 | disposition home or self-care (01) ==
LOC: MW.ED 23:31
DX: I48.0 Paroxysmal atrial fibrillation (principal); K46.9 Unspecified abdominal hernia without obstruction or gangrene; R19.7 Diarrhea, unspecified; I10 Essential (primary) hypertension; Z79.899 Other long term (current) drug therapy
CPT/HCPCS: 36415; 71045; 74177; 80053; 81001; 83690; 83735; 84100; 84443; 84484; 85025; 85610; 93005; 96374; 99285; A9270; J1170; J3490; Q9967; 93010; 99284

== ENCOUNTER 2023-03-02 07:56 | Inpatient (IN) | payer MEDICARE ==
[2023-03-02] MEDS ORDERED: Sodium Chloride 0.9% 10 ML Syringe FLUSH PRN (08:21)
[2023-03-02] MEDS ORDERED: Sodium Chloride 0.9% 2.5 ML Syringe FLUSH PRN (08:21)
[2023-03-02] MEDS ORDERED: Morphine 4 MG/ML Syringe IVPUSH PRN (08:29)
[2023-03-02 08:33] LABS: BASOPHILS PERCENT AUTO 0.3 % (0.0-1.5); EOSINOPHILS ABSOLUTE AUTO 0.1 K/uL (0.0-0.7); EOSINOPHILS PERCENT AUTO 0.5 % (0.0-7.0); HEMATOCRIT 48.9 % (36.0-46.0); HEMOGLOBIN 16.6 g/dL (12.0-16.0); LYMPHOCYTES ABSOLUTE AUTO 1.9 K/uL (0.6-2.4); LYMPHOCYTES PERCENT AUTO 17.8 % (16.0-40.0); MEAN CORPUSCULAR HEMOGLOBIN 29.9 pg (27.0-32.0); MEAN CORPUSCULAR HGB CONC 33.9 g/dL (31.0-37.0); MEAN CORPUSCULAR VOLUME 88.1 fL (80.0-98.0); MONOCYTES ABSOLUTE AUTO 0.8 K/uL (0.0-0.8); MONOCYTES PERCENT AUTO 7.6 % (0.0-15.0); NEUTROPHILS ABSOLUTE AUTO 7.9 K/uL (1.4-5.7); NEUTROPHILS PERCENT AUTO 73.8 % (48.0-80.0); NRBC ABSOLUTE 0 K/uL; PLATELET COUNT,PLT 414 K/uL (150-400); RED BLOOD CELL COUNT 5.55 M/uL (4.30-5.90); WHITE BLOOD CELL COUNT,WBC 10.65 K/uL (4.0-11.0)
[2023-03-02] MEDS ORDERED: Ondansetron 4 MG/2 ML SDV IVPUSH STA ×2 (08:38→10:48)
[2023-03-02 08:42] LABS: INR 1.14 (0.86-1.11)
[2023-03-02 08:53] LABS: A/G RATIO 0.8 (0.9-1.6); ALBUMIN 3.4 g/dL (3.4-5.0); BILIRUBIN TOTAL 0.9 mg/dL (0.2-1.0); CALCIUM 9.1 mg/dL (8.5-10.1); CARBON DIOXIDE,CO2 17.8 mmol/L (21.0-32.0); CREATININE 1.1 mg/dL (0.6-1.0); EST CRCL DRUG DOSING (CG) 38.16 mL/min; POTASSIUM,K 3.5 mmol/L (3.5-5.1); PROTEIN TOTAL,TP 7.8 g/dL (6.4-8.2)
[2023-03-02] MEDS ORDERED: Adenosine 6 MG/2 ML SDV IVPUSH ONE (09:56)
[2023-03-02] MEDS ORDERED: Metoprolol Tartrate 5 MG/5 ML SDV IVPUSH ONE (09:57)
[2023-03-02] MEDS ORDERED: Sodium Chloride 0.9% 500 ML IV SCH (10:15)
[2023-03-02] MEDS: Morphine 4 MG/ML Syringe IVPUSH PRN (10:54)
[2023-03-02] MEDS ORDERED: Iopamidol 755 MG/ML 500 ML Multipack Bottle IVPUSH ONE (11:26)
[2023-03-02] MEDS ORDERED: LORazepam 2 MG/ML SDV IVPUSH ONE (13:12)
[2023-03-02] MEDS ORDERED: Dexamethasone 10 MG/ML SDV IVPUSH ONE (15:56)
[2023-03-02] MEDS ORDERED: Acetaminophen 325 MG Tab PO PRN (17:46)
[2023-03-02] MEDS ORDERED: Ondansetron 4 MG Tab.DIS PO PRN (17:46)
[2023-03-02] MEDS ORDERED: Sodium Chloride 0.9% 1,000 ML IV SCH (18:00)
[2023-03-02 18:28] LABS: C-REACTIVE PROTEIN 3.3 mg/dL (0.00-0.90)
[2023-03-02 18:30] LABS: HEMOGLOBIN A1C 5.6 %
[2023-03-02] MEDS: Lidocaine 4% 1 each Patch TOP SCH (19:17)
[2023-03-02] MEDS: Apixaban 5 MG Tab PO SCH (21:05)
[2023-03-02] MEDS: Metoprolol Succinate 25 MG Tab.ER PO SCH (21:06)
[2023-03-03 06:07] LABS: HEMATOCRIT 43.5 % (36.0-46.0); HEMOGLOBIN 14.2 g/dL (12.0-16.0); LYMPHOCYTES ABSOLUTE AUTO 1.1 K/uL (0.6-2.4); LYMPHOCYTES PERCENT AUTO 16.4 % (16.0-40.0); MEAN CORPUSCULAR HEMOGLOBIN 29.1 pg (27.0-32.0); MEAN CORPUSCULAR HGB CONC 32.6 g/dL (31.0-37.0); MEAN CORPUSCULAR VOLUME 89.1 fL (80.0-98.0); MONOCYTES ABSOLUTE AUTO 0.4 K/uL (0.0-0.8); MONOCYTES PERCENT AUTO 5.3 % (0.0-15.0); NEUTROPHILS ABSOLUTE AUTO 5.3 K/uL (1.4-5.7); NEUTROPHILS PERCENT AUTO 78.3 % (48.0-80.0); NRBC ABSOLUTE 0 K/uL; PLATELET COUNT,PLT 363 K/uL (150-400); RED BLOOD CELL COUNT 4.88 M/uL (4.30-5.90); WHITE BLOOD CELL COUNT,WBC 6.76 K/uL (4.0-11.0)
[2023-03-03 06:43] LABS: A/G RATIO 0.8 (0.9-1.6); ALBUMIN 2.8 g/dL (3.4-5.0); BILIRUBIN TOTAL 0.5 mg/dL (0.2-1.0); C-REACTIVE PROTEIN 2.1 mg/dL (0.00-0.90); CALCIUM 8.4 mg/dL (8.5-10.1); CREATININE 1.1 mg/dL (0.6-1.0); EST CRCL DRUG DOSING (CG) 38.16 mL/min; MAGNESIUM 1.8 mg/dL (1.8-2.4); PROTEIN TOTAL,TP 6.5 g/dL (6.4-8.2)
[2023-03-03 07:26] LABS: HEMOGLOBIN A1C 5.8 %
[2023-03-03] MEDS: Lidocaine 4% 1 each Patch TOP SCH (09:06)
[2023-03-03] MEDS: traMADol 50 MG Tab PO PRN ×2 (09:06→15:33)
[2023-03-03] MEDS: Apixaban 5 MG Tab PO SCH ×2 (09:06→20:48)
[2023-03-03] MEDS: predniSONE 20 MG Tab PO SCH (09:06)
[2023-03-03 11:10] LABS: APPEARANCE,URINE CLEAR; BILIRUBIN,URINE NEGATIVE (NEGATIVE); COLOR,URINE YELLOW; GLUCOSE,URINE NEGATIVE (NEGATIVE); KETONES,URINE TRACE mg/dL (NEGATIVE); LEUKOCYTE ESTERASE,URINE NEGATIVE (NEGATIVE); NITRITE,URINE NEGATIVE (NEGATIVE); OCCULT BLOOD,URINE NEGATIVE (NEGATIVE); PH,URINE 5.5 (5.0-8.0); PROTEIN,URINE NEGATIVE (NEGATIVE); UROBILINOGEN,URINE 0.2 EU/dL (<2.0)
[2023-03-03 11:23] LABS: EPITHELIAL CELLS,URINE FEW (NONE-FEW); RBC,URINE 0-2 (0-2/HPF); WBC,URINE 0-3 (0-5/HPF)
[2023-03-03 11:24] LABS: BACTERIA,URINE FEW (NEGATIVE); MUCUS,URINE LIGHT (NONE-MOD)
[2023-03-03] MEDS: Methocarbamol 750 MG TAB PO PRN (15:33)
[2023-03-03] MEDS: Metoprolol Succinate 25 MG Tab.ER PO SCH (20:48)
[2023-03-04] MEDS: traMADol 50 MG Tab PO PRN ×2 (04:52→17:15)
[2023-03-04] MEDS: Methocarbamol 750 MG TAB PO PRN ×2 (04:52→17:15)
[2023-03-04 07:00] LABS: CALCIUM 8.7 mg/dL (8.5-10.1); CARBON DIOXIDE,CO2 24.6 mmol/L (21.0-32.0); CREATININE 0.9 mg/dL (0.6-1.0); EST CRCL DRUG DOSING (CG) 46.64 mL/min; MAGNESIUM 1.8 mg/dL (1.8-2.4); POTASSIUM,K 3.6 mmol/L (3.5-5.1)
[2023-03-04] MEDS: predniSONE 20 MG Tab PO SCH (09:07)
[2023-03-04] MEDS: Lidocaine 4% 1 each Patch TOP SCH (09:07)
[2023-03-04] MEDS: Apixaban 5 MG Tab PO SCH ×2 (09:07→20:37)
[2023-03-04] MEDS ORDERED: Lisinopril 10 MG Tab PO ONE (17:41)
[2023-03-04] MEDS: Metoprolol Succinate 25 MG Tab.ER PO SCH (20:37)
[2023-03-05] MEDS: traMADol 50 MG Tab PO PRN (02:06)
[2023-03-05] MEDS: Methocarbamol 750 MG TAB PO PRN (02:06)
[2023-03-05 06:14] LABS: BASOPHILS PERCENT AUTO 0.1 % (0.0-1.5); EOSINOPHILS PERCENT AUTO 0.1 % (0.0-7.0); HEMATOCRIT 44.1 % (36.0-46.0); HEMOGLOBIN 14.2 g/dL (12.0-16.0); LYMPHOCYTES ABSOLUTE AUTO 1.9 K/uL (0.6-2.4); LYMPHOCYTES PERCENT AUTO 28.6 % (16.0-40.0); MEAN CORPUSCULAR HEMOGLOBIN 28.3 pg (27.0-32.0); MEAN CORPUSCULAR HGB CONC 32.2 g/dL (31.0-37.0); MONOCYTES ABSOLUTE AUTO 0.8 K/uL (0.0-0.8); MONOCYTES PERCENT AUTO 11.7 % (0.0-15.0); NEUTROPHILS PERCENT AUTO 59.5 % (48.0-80.0); NRBC ABSOLUTE 0 K/uL; PLATELET COUNT,PLT 342 K/uL (150-400); RED BLOOD CELL COUNT 5.01 M/uL (4.30-5.90); WHITE BLOOD CELL COUNT,WBC 6.68 K/uL (4.0-11.0)
[2023-03-05 06:26] LABS: CALCIUM 8.8 mg/dL (8.5-10.1); CARBON DIOXIDE,CO2 28.8 mmol/L (21.0-32.0); CREATININE 0.8 mg/dL (0.6-1.0); EST CRCL DRUG DOSING (CG) 52.47 mL/min; POTASSIUM,K 3.2 mmol/L (3.5-5.1)
[2023-03-05] MEDS ORDERED: Acetaminophen 325 MG Tab PO SCH (08:00)
[2023-03-05] MEDS ORDERED: Pantoprazole 40 MG in Sodium Chloride 0.9% 10 ML IVPUSH ONE (08:58)
[2023-03-05] MEDS: Acetaminophen 325 MG Tab PO SCH ×3 (09:03→20:34)
[2023-03-05] MEDS: Apixaban 5 MG Tab PO SCH ×2 (09:04→20:33)
[2023-03-05] MEDS: Lidocaine 4% 1 each Patch TOP SCH (09:04)
[2023-03-05] MEDS: predniSONE 20 MG Tab PO SCH (09:04)
[2023-03-05] MEDS: Lisinopril 10 MG Tab PO SCH (09:30)
[2023-03-05] MEDS: Morphine 4 MG/ML Syringe IVPUSH PRN (11:03)
[2023-03-05] MEDS ORDERED: Potassium Chloride 20 MEQ Tab.ER PO ONE (13:23)
[2023-03-05] MEDS: Nystatin Topical Powder 15 GM Bottle TOP SCH ×2 (15:26→23:43)
[2023-03-05] MEDS: oxyCODONE 5 MG Tab PO PRN ×2 (16:26→20:34)
[2023-03-05] MEDS: Metoprolol Succinate 25 MG Tab.ER PO SCH (20:36)
[2023-03-06] MEDS: oxyCODONE 5 MG Tab PO PRN ×3 (04:03→22:11)
[2023-03-06] MEDS: Acetaminophen 325 MG Tab PO SCH ×4 (04:03→21:06)
[2023-03-06] MEDS: Ondansetron 4 MG/2 ML SDV IVPUSH PRN (04:03)
[2023-03-06 06:09] LABS: BASOPHILS PERCENT AUTO 0.1 % (0.0-1.5); EOSINOPHILS PERCENT AUTO 0.3 % (0.0-7.0); HEMATOCRIT 44.5 % (36.0-46.0); HEMOGLOBIN 14.1 g/dL (12.0-16.0); LYMPHOCYTES ABSOLUTE AUTO 2.1 K/uL (0.6-2.4); LYMPHOCYTES PERCENT AUTO 29.7 % (16.0-40.0); MEAN CORPUSCULAR HEMOGLOBIN 28.4 pg (27.0-32.0); MEAN CORPUSCULAR HGB CONC 31.7 g/dL (31.0-37.0); MEAN CORPUSCULAR VOLUME 89.5 fL (80.0-98.0); MONOCYTES PERCENT AUTO 14.7 % (0.0-15.0); NEUTROPHILS ABSOLUTE AUTO 3.9 K/uL (1.4-5.7); NEUTROPHILS PERCENT AUTO 55.2 % (48.0-80.0); NRBC ABSOLUTE 0 K/uL; PLATELET COUNT,PLT 373 K/uL (150-400); RED BLOOD CELL COUNT 4.97 M/uL (4.30-5.90); WHITE BLOOD CELL COUNT,WBC 7.07 K/uL (4.0-11.0)
[2023-03-06 06:25] LABS: CALCIUM 8.7 mg/dL (8.5-10.1); CARBON DIOXIDE,CO2 27.3 mmol/L (21.0-32.0); CREATININE 1.1 mg/dL (0.6-1.0); EST CRCL DRUG DOSING (CG) 38.16 mL/min; MAGNESIUM 1.8 mg/dL (1.8-2.4); POTASSIUM,K 3.6 mmol/L (3.5-5.1)
[2023-03-06] MEDS: Nystatin Topical Powder 15 GM Bottle TOP SCH ×3 (06:27→22:13)
[2023-03-06] MEDS: Pantoprazole 40 MG Tab.CR PO SCH (06:29)
[2023-03-06] MEDS: Apixaban 5 MG Tab PO SCH ×2 (08:20→21:07)
[2023-03-06] MEDS: predniSONE 20 MG Tab PO SCH (08:20)
[2023-03-06] MEDS: Lisinopril 10 MG Tab PO SCH (08:22)
[2023-03-06] MEDS: Lidocaine 4% 1 each Patch TOP SCH (09:22)
[2023-03-06] MEDS: Metoprolol Succinate 25 MG Tab.ER PO SCH (21:07)
[2023-03-07] MEDS: Acetaminophen 325 MG Tab PO SCH ×6 (04:11→21:27)
[2023-03-07 06:49] LABS: CALCIUM 8.6 mg/dL (8.5-10.1); CREATININE 1.1 mg/dL (0.6-1.0); EST CRCL DRUG DOSING (CG) 38.16 mL/min; POTASSIUM,K 3.4 mmol/L (3.5-5.1)
[2023-03-07] MEDS: Pantoprazole 40 MG Tab.CR PO SCH (06:53)
[2023-03-07] MEDS: Nystatin Topical Powder 15 GM Bottle TOP SCH ×3 (06:54→21:29)
[2023-03-07 07:03] LABS: BASOPHILS PERCENT AUTO 0.3 % (0.0-1.5); EOSINOPHILS PERCENT AUTO 0.4 % (0.0-7.0); HEMATOCRIT 44.2 % (36.0-46.0); HEMOGLOBIN 14.3 g/dL (12.0-16.0); LYMPHOCYTES ABSOLUTE AUTO 2.6 K/uL (0.6-2.4); LYMPHOCYTES PERCENT AUTO 32.3 % (16.0-40.0); MEAN CORPUSCULAR HEMOGLOBIN 29.7 pg (27.0-32.0); MEAN CORPUSCULAR HGB CONC 32.4 g/dL (31.0-37.0); MEAN CORPUSCULAR VOLUME 91.7 fL (80.0-98.0); MONOCYTES ABSOLUTE AUTO 0.8 K/uL (0.0-0.8); MONOCYTES PERCENT AUTO 10.3 % (0.0-15.0); NEUTROPHILS ABSOLUTE AUTO 4.5 K/uL (1.4-5.7); NEUTROPHILS PERCENT AUTO 56.7 % (48.0-80.0); PLATELET COUNT,PLT 339 K/uL (150-400); RED BLOOD CELL COUNT 4.82 M/uL (4.30-5.90); WHITE BLOOD CELL COUNT,WBC 7.95 K/uL (4.0-11.0)
[2023-03-07] MEDS: predniSONE 20 MG Tab PO SCH (07:31)
[2023-03-07] MEDS: Lidocaine 4% 1 each Patch TOP SCH ×2 (07:31→08:11)
[2023-03-07] MEDS: Methocarbamol 750 MG TAB PO PRN (07:32)
[2023-03-07] MEDS: Lisinopril 10 MG Tab PO SCH ×2 (07:32→08:11)
[2023-03-07] MEDS: Apixaban 5 MG Tab PO SCH ×3 (07:32→21:27)
[2023-03-07] MEDS: oxyCODONE 5 MG Tab PO PRN ×2 (07:33→21:34)
[2023-03-07] MEDS: Ondansetron 4 MG/2 ML SDV IVPUSH PRN ×2 (07:35→15:59)
[2023-03-07] MEDS ORDERED: Potassium Chloride 20 MEQ Tab.ER PO ONE (07:51)
[2023-03-07] MEDS ORDERED: Sodium Chloride 0.9% 1,000 ML IV ONE (16:26)
[2023-03-07] MEDS ORDERED: Metoprolol Succinate 50 MG Tab.ER PO ONE (17:30)
[2023-03-08] MEDS: Acetaminophen 325 MG Tab PO SCH ×3 (03:54→15:22)
[2023-03-08] MEDS: oxyCODONE 5 MG Tab PO PRN ×3 (03:59→15:22)
[2023-03-08] MEDS: Pantoprazole 40 MG Tab.CR PO SCH ×2 (06:28→06:31)
[2023-03-08] MEDS: Nystatin Topical Powder 15 GM Bottle TOP SCH ×2 (06:28→15:23)
[2023-03-08] MEDS: Lidocaine 4% 1 each Patch TOP SCH (08:32)
[2023-03-08] MEDS: Lisinopril 10 MG Tab PO SCH (08:33)
[2023-03-08] MEDS: Apixaban 5 MG Tab PO SCH (08:33)
[2023-03-08] MEDS ORDERED: Lisinopril 10 MG Tab PO ONE (08:45)
[2023-03-08 08:58] LABS: CALCIUM 8.3 mg/dL (8.5-10.1); CARBON DIOXIDE,CO2 27.9 mmol/L (21.0-32.0); CREATININE 1.1 mg/dL (0.6-1.0); EST CRCL DRUG DOSING (CG) 38.16 mL/min; MAGNESIUM 1.6 mg/dL (1.8-2.4); POTASSIUM,K 3.4 mmol/L (3.5-5.1)
[2023-03-08] MEDS ORDERED: Magnesium Sulfate/Water 2 GM in Premix Bag 1 BAG IV ONE (09:50)
[2023-03-08] MEDS ORDERED: Potassium Chloride 20 MEQ Tab.ER PO ONE (09:50)
[2023-03-08 16:16] VITALS: BP 169/115; PULSE 85
== END 2023-03-08 18:00 | disposition home health service (06) | DRG 552 ==
LOC: MW.ED 07:56 → MW.MS 16:18 → OBSVTOIN 03-04 16:35 → MW.MS 03-04 16:36
PROVIDERS: ADMIT Internal Medicine; ATTEND Internal Medicine
DX: M54.50 Low back pain, unspecified (principal); I47.1 Supraventricular tachycardia; J98.11 Atelectasis; M48.56XA Collapsed vertebra, not elsewhere classified, lumbar region, initial encounter for fracture; E87.0 Hyperosmolality and hypernatremia; K44.9 Diaphragmatic hernia without obstruction or gangrene; M47.816 Spondylosis without myelopathy or radiculopathy, lumbar region; I48.0 Paroxysmal atrial fibrillation; N28.9 Disorder of kidney and ureter, unspecified; E66.09 Other obesity due to excess calories; R15.9 Full incontinence of feces; M48.061 Spinal stenosis, lumbar region without neurogenic claudication; I77.819 Aortic ectasia, unspecified site; K80.20 Calculus of gallbladder without cholecystitis without obstruction; I10 Essential (primary) hypertension; F32.A Depression, unspecified; Z68.32 Body mass index [BMI] 32.0-32.9, adult; Z90.710 Acquired absence of both cervix and uterus; Z90.89 Acquired absence of other organs; Z87.891 Personal history of nicotine dependence
CPT/HCPCS: 36415; 72131-26; 72148; 72148-26; 74177; 74177-26; 76705; 76705-26; 80048; 80053; 80061; 81001; 82550; 83036; 83605; 83690; 83735; 83935; 85025; 85610; 85652; 86140; 93005; 93010; 96361; 96374; 96375; 96376; 97161-GP; 97530-GP; 99221; 99232; 99238; 99283; 99285-25; A9270-GY; C9113; G0378; J0153; J1100; J2060; J2270; J2405; J3475; J3490; J7030; J7040; J7060; Q9967

== ENCOUNTER 2023-03-27 19:55 | Inpatient (IN) | payer MEDICARE ==
[2023-03-27] MEDS ORDERED: Lidocaine 4% 1 each Patch TOP PRN (20:07)
[2023-03-27] MEDS ORDERED: Sodium Chloride 0.9% 1,000 ML IV ONE (20:07)
[2023-03-27 20:20] LABS: BASOPHILS PERCENT AUTO 0.3 % (0.0-1.5); EOSINOPHILS ABSOLUTE AUTO 0.1 K/uL (0.0-0.7); EOSINOPHILS PERCENT AUTO 1.1 % (0.0-7.0); HEMATOCRIT 44.8 % (36.0-46.0); HEMOGLOBIN 14.6 g/dL (12.0-16.0); LYMPHOCYTES ABSOLUTE AUTO 1.6 K/uL (0.6-2.4); LYMPHOCYTES PERCENT AUTO 22.5 % (16.0-40.0); MEAN CORPUSCULAR HEMOGLOBIN 29.4 pg (27.0-32.0); MEAN CORPUSCULAR HGB CONC 32.6 g/dL (31.0-37.0); MEAN CORPUSCULAR VOLUME 90.1 fL (80.0-98.0); MONOCYTES ABSOLUTE AUTO 0.6 K/uL (0.0-0.8); MONOCYTES PERCENT AUTO 8.6 % (0.0-15.0); NEUTROPHILS ABSOLUTE AUTO 4.7 K/uL (1.4-5.7); NEUTROPHILS PERCENT AUTO 67.5 % (48.0-80.0); PLATELET COUNT,PLT 297 K/uL (150-400); RED BLOOD CELL COUNT 4.97 M/uL (4.30-5.90); WHITE BLOOD CELL COUNT,WBC 6.97 K/uL (4.0-11.0)
[2023-03-27] MEDS ORDERED: Ondansetron 4 MG/2 ML SDV IVPUSH ONE (20:24)
[2023-03-27] MEDS ORDERED: Adenosine 6 MG/2 ML SDV IVPUSH ONE (20:39)
[2023-03-27 20:48] LABS: A/G RATIO 0.8 (0.9-1.6); ALBUMIN 2.8 g/dL (3.4-5.0); BILIRUBIN TOTAL 0.5 mg/dL (0.2-1.0); CALCIUM 8.6 mg/dL (8.5-10.1); CARBON DIOXIDE,CO2 22.2 mmol/L (21.0-32.0); EST CRCL DRUG DOSING (CG) 41.97 mL/min; POTASSIUM,K 3.1 mmol/L (3.5-5.1); PROTEIN TOTAL,TP 6.2 g/dL (6.4-8.2)
[2023-03-27] MEDS ORDERED: Metoprolol Tartrate 5 MG/5 ML SDV IVPUSH ONE (20:51)
[2023-03-27] MEDS ORDERED: Potassium Chloride 20 MEQ in Premix Bag 1 BAG IV ONE (22:01)
[2023-03-27] MEDS ORDERED: Potassium Chloride 20 MEQ Tab.ER PO ONE (22:01)
[2023-03-27] MEDS ORDERED: Sodium Chloride 0.9% 250 ML IV ONE (22:15)
[2023-03-28] MEDS ORDERED: Morphine 4 MG/ML Syringe IVPUSH ONE (00:22)
[2023-03-28] MEDS ORDERED: Morphine 2 MG/ML SYRINGE IVPUSH PRN (03:48)
[2023-03-28] MEDS ORDERED: oxyCODONE 5 MG Tab PO PRN ×2 (03:59→08:36)
[2023-03-28] MEDS ORDERED: Lidocaine 4% 1 each Patch TOP PRN (04:02)
[2023-03-28] MEDS ORDERED: Acetaminophen 325 MG Tab PO PRN (04:04)
[2023-03-28] MEDS ORDERED: Nystatin Topical Powder 15 GM Bottle TOP SCH (06:00)
[2023-03-28] MEDS ORDERED: Sodium Chloride 0.9% 10 ML Syringe FLUSH PRN (07:56)
[2023-03-28] MEDS ORDERED: Sodium Chloride 0.9% 2.5 ML Syringe FLUSH PRN (07:56)
[2023-03-28] MEDS ORDERED: Polyethylene Glycol 3350 Powder 17 GM Packet PO PRN (07:56)
[2023-03-28] MEDS ORDERED: DICLOFENAC SODIUM TOP PRN (07:58)
[2023-03-28 08:37] LABS: BASOPHILS PERCENT AUTO 0.2 % (0.0-1.5); EOSINOPHILS ABSOLUTE AUTO 0.1 K/uL (0.0-0.7); EOSINOPHILS PERCENT AUTO 1.3 % (0.0-7.0); HEMATOCRIT 41.8 % (36.0-46.0); HEMOGLOBIN 13.4 g/dL (12.0-16.0); LYMPHOCYTES ABSOLUTE AUTO 1.6 K/uL (0.6-2.4); LYMPHOCYTES PERCENT AUTO 25.9 % (16.0-40.0); MEAN CORPUSCULAR HEMOGLOBIN 29.9 pg (27.0-32.0); MEAN CORPUSCULAR HGB CONC 32.1 g/dL (31.0-37.0); MEAN CORPUSCULAR VOLUME 93.3 fL (80.0-98.0); MONOCYTES ABSOLUTE AUTO 0.6 K/uL (0.0-0.8); MONOCYTES PERCENT AUTO 10.2 % (0.0-15.0); NEUTROPHILS ABSOLUTE AUTO 3.9 K/uL (1.4-5.7); NEUTROPHILS PERCENT AUTO 62.4 % (48.0-80.0); PLATELET COUNT,PLT 248 K/uL (150-400); RED BLOOD CELL COUNT 4.48 M/uL (4.30-5.90); WHITE BLOOD CELL COUNT,WBC 6.29 K/uL (4.0-11.0)
[2023-03-28 08:55] LABS: CALCIUM 8.2 mg/dL (8.5-10.1); CARBON DIOXIDE,CO2 24.6 mmol/L (21.0-32.0); EST CRCL DRUG DOSING (CG) 41.97 mL/min; MAGNESIUM 1.8 mg/dL (1.8-2.4); PHOSPHORUS 2.8 mg/dL (2.6-4.7); POTASSIUM,K 3.9 mmol/L (3.5-5.1)
[2023-03-28] MEDS ORDERED: Pantoprazole 40 MG Tab.CR PO SCH (09:00)
[2023-03-28] MEDS ORDERED: CHOLECALCIFEROL 125 MCG PO SCH (09:00)
[2023-03-28] MEDS ORDERED: Apixaban 5 MG Tab PO SCH (09:00)
[2023-03-28] MEDS ORDERED: Lisinopril 10 MG Tab PO SCH (09:00)
[2023-03-28] MEDS ORDERED: Docusate Sodium 100 MG Cap PO SCH (09:00)
[2023-03-28] MEDS ORDERED: Acetaminophen 500 MG Tab PO SCH (09:00)
[2023-03-28] MEDS: Apixaban 5 MG Tab PO SCH ×2 (09:04→20:29)
[2023-03-28] MEDS: Calcium Carbonate/Vitamin D3 1500 MG-400 Units Tab PO SCH (09:04)
[2023-03-28] MEDS: Lisinopril 10 MG Tab PO SCH (09:04)
[2023-03-28] MEDS: Lidocaine 4% 1 each Patch TOP SCH (09:26)
[2023-03-28] MEDS ORDERED: Potassium Chloride 20 MEQ Tab.ER PO ONE (09:36)
[2023-03-28] MEDS ORDERED: Magnesium Sulfate/Water 2 GM in Premix Bag 1 BAG IV ONE (09:36)
[2023-03-28] MEDS: Ondansetron 4 MG/2 ML SDV IVPUSH PRN (10:35)
[2023-03-28] MEDS: Methocarbamol 750 MG TAB PO PRN ×2 (10:35→19:22)
[2023-03-28] MEDS: Metoprolol Tartrate 50 MG Tab PO SCH ×2 (10:35→20:31)
[2023-03-28] MEDS: Acetaminophen 500 MG Tab PO SCH ×2 (13:38→20:29)
[2023-03-28] MEDS: Nystatin Topical Powder 15 GM Bottle TOP SCH ×2 (15:23→22:35)
[2023-03-28] MEDS ORDERED: Metoprolol Succinate 50 MG Tab.ER PO SCH (21:00)
[2023-03-29] MEDS: Acetaminophen 500 MG Tab PO SCH ×3 (05:49→20:40)
[2023-03-29] MEDS: Pantoprazole 40 MG Tab.CR PO SCH ×2 (05:50→08:23)
[2023-03-29] MEDS: Nystatin Topical Powder 15 GM Bottle TOP SCH ×3 (05:50→21:43)
[2023-03-29 06:47] LABS: BASOPHILS PERCENT AUTO 0.2 % (0.0-1.5); EOSINOPHILS ABSOLUTE AUTO 0.1 K/uL (0.0-0.7); EOSINOPHILS PERCENT AUTO 2.8 % (0.0-7.0); HEMATOCRIT 40.6 % (36.0-46.0); HEMOGLOBIN 12.7 g/dL (12.0-16.0); LYMPHOCYTES ABSOLUTE AUTO 1.8 K/uL (0.6-2.4); LYMPHOCYTES PERCENT AUTO 36.5 % (16.0-40.0); MEAN CORPUSCULAR HEMOGLOBIN 28.8 pg (27.0-32.0); MEAN CORPUSCULAR HGB CONC 31.3 g/dL (31.0-37.0); MEAN CORPUSCULAR VOLUME 92.1 fL (80.0-98.0); MONOCYTES ABSOLUTE AUTO 0.5 K/uL (0.0-0.8); MONOCYTES PERCENT AUTO 9.9 % (0.0-15.0); NEUTROPHILS ABSOLUTE AUTO 2.5 K/uL (1.4-5.7); NEUTROPHILS PERCENT AUTO 50.6 % (48.0-80.0); NRBC ABSOLUTE 0 K/uL; PLATELET COUNT,PLT 249 K/uL (150-400); RED BLOOD CELL COUNT 4.41 M/uL (4.30-5.90); WHITE BLOOD CELL COUNT,WBC 4.93 K/uL (4.0-11.0)
[2023-03-29 07:17] LABS: CALCIUM 8.5 mg/dL (8.5-10.1); CARBON DIOXIDE,CO2 25.3 mmol/L (21.0-32.0); CREATININE 0.8 mg/dL (0.6-1.0); EST CRCL DRUG DOSING (CG) 52.47 mL/min; MAGNESIUM 1.9 mg/dL (1.8-2.4); PHOSPHORUS 3.2 mg/dL (2.6-4.7); POTASSIUM,K 4.6 mmol/L (3.5-5.1)
[2023-03-29] MEDS: Metoprolol Tartrate 50 MG Tab PO SCH ×2 (09:59→20:40)
[2023-03-29] MEDS: Lisinopril 10 MG Tab PO SCH (10:00)
[2023-03-29] MEDS: Apixaban 5 MG Tab PO SCH ×2 (10:01→20:40)
[2023-03-29] MEDS: Calcium Carbonate/Vitamin D3 1500 MG-400 Units Tab PO SCH (10:01)
[2023-03-29] MEDS: Lidocaine 4% 1 each Patch TOP SCH (10:02)
[2023-03-29] MEDS ORDERED: Metoprolol Tartrate 50 MG Tab ONE (10:09)
[2023-03-29] MEDS: oxyCODONE 5 MG Tab PO PRN ×2 (15:39→21:43)
[2023-03-29] MEDS: Methocarbamol 750 MG TAB PO PRN (20:40)
[2023-03-30 05:50] LABS: BASOPHILS PERCENT AUTO 0.4 % (0.0-1.5); EOSINOPHILS ABSOLUTE AUTO 0.1 K/uL (0.0-0.7); EOSINOPHILS PERCENT AUTO 2.5 % (0.0-7.0); HEMOGLOBIN 13.7 g/dL (12.0-16.0); LYMPHOCYTES ABSOLUTE AUTO 1.7 K/uL (0.6-2.4); LYMPHOCYTES PERCENT AUTO 35.7 % (16.0-40.0); MEAN CORPUSCULAR HEMOGLOBIN 29.2 pg (27.0-32.0); MEAN CORPUSCULAR HGB CONC 31.9 g/dL (31.0-37.0); MEAN CORPUSCULAR VOLUME 91.7 fL (80.0-98.0); MONOCYTES ABSOLUTE AUTO 0.4 K/uL (0.0-0.8); MONOCYTES PERCENT AUTO 8.1 % (0.0-15.0); NEUTROPHILS ABSOLUTE AUTO 2.5 K/uL (1.4-5.7); NEUTROPHILS PERCENT AUTO 53.3 % (48.0-80.0); NRBC ABSOLUTE 0 K/uL; PLATELET COUNT,PLT 245 K/uL (150-400); RED BLOOD CELL COUNT 4.69 M/uL (4.30-5.90); WHITE BLOOD CELL COUNT,WBC 4.71 K/uL (4.0-11.0)
[2023-03-30 06:19] LABS: CALCIUM 8.6 mg/dL (8.5-10.1); CARBON DIOXIDE,CO2 24.8 mmol/L (21.0-32.0); CREATININE 0.8 mg/dL (0.6-1.0); EST CRCL DRUG DOSING (CG) 52.47 mL/min; MAGNESIUM 1.6 mg/dL (1.8-2.4); POTASSIUM,K 4.1 mmol/L (3.5-5.1)
[2023-03-30] MEDS: Nystatin Topical Powder 15 GM Bottle TOP SCH ×4 (06:43→21:57)
[2023-03-30] MEDS: Acetaminophen 500 MG Tab PO SCH ×3 (06:43→20:49)
[2023-03-30] MEDS: Pantoprazole 40 MG Tab.CR PO SCH (06:44)
[2023-03-30] MEDS: oxyCODONE 5 MG Tab PO PRN ×2 (07:27→16:25)
[2023-03-30] MEDS ORDERED: Magnesium Sulfate/Water 2 GM in Premix Bag 1 BAG IV ONE (08:08)
[2023-03-30] MEDS: Metoprolol Tartrate 50 MG Tab PO SCH ×2 (08:49→20:50)
[2023-03-30] MEDS: Lisinopril 10 MG Tab PO SCH (08:51)
[2023-03-30] MEDS: Calcium Carbonate/Vitamin D3 1500 MG-400 Units Tab PO SCH (08:51)
[2023-03-30] MEDS: Apixaban 5 MG Tab PO SCH ×2 (08:51→20:50)
[2023-03-30] MEDS: Lidocaine 4% 1 each Patch TOP SCH (08:53)
[2023-03-30] MEDS: Melatonin 3 MG Tab PO SCH (20:50)
[2023-03-31] MEDS: oxyCODONE 5 MG Tab PO PRN ×3 (00:34→20:31)
[2023-03-31] MEDS: Acetaminophen 500 MG Tab PO SCH ×4 (03:52→20:30)
[2023-03-31 05:56] LABS: BASOPHILS PERCENT AUTO 0.5 % (0.0-1.5); EOSINOPHILS ABSOLUTE AUTO 0.1 K/uL (0.0-0.7); EOSINOPHILS PERCENT AUTO 2.6 % (0.0-7.0); HEMATOCRIT 39.9 % (36.0-46.0); HEMOGLOBIN 12.7 g/dL (12.0-16.0); LYMPHOCYTES ABSOLUTE AUTO 1.8 K/uL (0.6-2.4); LYMPHOCYTES PERCENT AUTO 42.1 % (16.0-40.0); MEAN CORPUSCULAR HEMOGLOBIN 28.8 pg (27.0-32.0); MEAN CORPUSCULAR HGB CONC 31.8 g/dL (31.0-37.0); MEAN CORPUSCULAR VOLUME 90.5 fL (80.0-98.0); MONOCYTES ABSOLUTE AUTO 0.5 K/uL (0.0-0.8); MONOCYTES PERCENT AUTO 11.2 % (0.0-15.0); NEUTROPHILS ABSOLUTE AUTO 1.9 K/uL (1.4-5.7); NEUTROPHILS PERCENT AUTO 43.6 % (48.0-80.0); NRBC ABSOLUTE 0 K/uL; PLATELET COUNT,PLT 245 K/uL (150-400); RED BLOOD CELL COUNT 4.41 M/uL (4.30-5.90); WHITE BLOOD CELL COUNT,WBC 4.28 K/uL (4.0-11.0)
[2023-03-31 06:12] LABS: CALCIUM 8.2 mg/dL (8.5-10.1); CARBON DIOXIDE,CO2 26.9 mmol/L (21.0-32.0); CREATININE 0.7 mg/dL (0.6-1.0); EST CRCL DRUG DOSING (CG) 59.96 mL/min; POTASSIUM,K 4.2 mmol/L (3.5-5.1)
[2023-03-31] MEDS: Nystatin Topical Powder 15 GM Bottle TOP SCH ×4 (06:39→21:30)
[2023-03-31] MEDS: Pantoprazole 40 MG Tab.CR PO SCH (06:39)
[2023-03-31] MEDS: Lidocaine 4% 1 each Patch TOP SCH (09:24)
[2023-03-31] MEDS: Lisinopril 10 MG Tab PO SCH (09:25)
[2023-03-31] MEDS: Calcium Carbonate/Vitamin D3 1500 MG-400 Units Tab PO SCH (09:25)
[2023-03-31] MEDS: Apixaban 5 MG Tab PO SCH ×2 (09:25→20:30)
[2023-03-31] MEDS: Metoprolol Tartrate 50 MG Tab PO SCH ×2 (09:25→20:32)
[2023-03-31] MEDS: Methocarbamol 750 MG TAB PO PRN (20:29)
[2023-03-31] MEDS: Melatonin 3 MG Tab PO SCH (20:29)
[2023-03-31] MEDS: Ondansetron 4 MG/2 ML SDV IVPUSH PRN (20:30)
[2023-04-01] MEDS: oxyCODONE 5 MG Tab PO PRN ×3 (02:10→20:08)
[2023-04-01 05:32] LABS: BASOPHILS PERCENT AUTO 0.2 % (0.0-1.5); EOSINOPHILS ABSOLUTE AUTO 0.1 K/uL (0.0-0.7); HEMATOCRIT 39.4 % (36.0-46.0); HEMOGLOBIN 12.8 g/dL (12.0-16.0); LYMPHOCYTES ABSOLUTE AUTO 2.1 K/uL (0.6-2.4); LYMPHOCYTES PERCENT AUTO 45.1 % (16.0-40.0); MEAN CORPUSCULAR HEMOGLOBIN 29.6 pg (27.0-32.0); MEAN CORPUSCULAR HGB CONC 32.5 g/dL (31.0-37.0); MONOCYTES ABSOLUTE AUTO 0.4 K/uL (0.0-0.8); MONOCYTES PERCENT AUTO 8.9 % (0.0-15.0); NEUTROPHILS PERCENT AUTO 42.8 % (48.0-80.0); NRBC ABSOLUTE 0 K/uL; PLATELET COUNT,PLT 241 K/uL (150-400); RED BLOOD CELL COUNT 4.33 M/uL (4.30-5.90); WHITE BLOOD CELL COUNT,WBC 4.63 K/uL (4.0-11.0)
[2023-04-01 05:52] LABS: CALCIUM 8.2 mg/dL (8.5-10.1); CARBON DIOXIDE,CO2 27.4 mmol/L (21.0-32.0); CREATININE 0.8 mg/dL (0.6-1.0); EST CRCL DRUG DOSING (CG) 52.47 mL/min; MAGNESIUM 1.8 mg/dL (1.8-2.4); POTASSIUM,K 4.1 mmol/L (3.5-5.1)
[2023-04-01] MEDS: Pantoprazole 40 MG Tab.CR PO SCH ×2 (06:15→06:32)
[2023-04-01] MEDS: Acetaminophen 500 MG Tab PO SCH ×3 (06:15→20:08)
[2023-04-01] MEDS: Nystatin Topical Powder 15 GM Bottle TOP SCH ×2 (06:16→13:26)
[2023-04-01] MEDS: Lisinopril 10 MG Tab PO SCH (08:35)
[2023-04-01] MEDS: Calcium Carbonate/Vitamin D3 1500 MG-400 Units Tab PO SCH (08:35)
[2023-04-01] MEDS: Apixaban 5 MG Tab PO SCH ×2 (08:36→20:08)
[2023-04-01] MEDS: Lidocaine 4% 1 each Patch TOP SCH (08:38)
[2023-04-01] MEDS: Metoprolol Tartrate 50 MG Tab PO SCH ×2 (08:39→20:09)
[2023-04-01] MEDS: Melatonin 3 MG Tab PO SCH (20:08)
[2023-04-01] MEDS: Methocarbamol 750 MG TAB PO PRN (20:08)
[2023-04-02] MEDS: Nystatin Topical Powder 15 GM Bottle TOP SCH ×5 (00:11→21:20)
[2023-04-02] MEDS: Metoprolol Tartrate 50 MG Tab PO SCH ×3 (00:11→20:44)
[2023-04-02] MEDS: oxyCODONE 5 MG Tab PO PRN ×3 (04:18→20:45)
[2023-04-02] MEDS: Pantoprazole 40 MG Tab.CR PO SCH ×2 (06:07→06:31)
[2023-04-02] MEDS: Acetaminophen 500 MG Tab PO SCH ×3 (06:07→20:44)
[2023-04-02 06:17] LABS: BASOPHILS PERCENT AUTO 0.2 % (0.0-1.5); EOSINOPHILS ABSOLUTE AUTO 0.1 K/uL (0.0-0.7); EOSINOPHILS PERCENT AUTO 2.1 % (0.0-7.0); HEMATOCRIT 39.2 % (36.0-46.0); HEMOGLOBIN 12.9 g/dL (12.0-16.0); LYMPHOCYTES ABSOLUTE AUTO 1.8 K/uL (0.6-2.4); LYMPHOCYTES PERCENT AUTO 36.8 % (16.0-40.0); MEAN CORPUSCULAR HGB CONC 32.9 g/dL (31.0-37.0); MEAN CORPUSCULAR VOLUME 91.2 fL (80.0-98.0); MONOCYTES ABSOLUTE AUTO 0.6 K/uL (0.0-0.8); MONOCYTES PERCENT AUTO 11.3 % (0.0-15.0); NEUTROPHILS ABSOLUTE AUTO 2.4 K/uL (1.4-5.7); NEUTROPHILS PERCENT AUTO 49.6 % (48.0-80.0); NRBC ABSOLUTE 0 K/uL; PLATELET COUNT,PLT 246 K/uL (150-400); WHITE BLOOD CELL COUNT,WBC 4.86 K/uL (4.0-11.0)
[2023-04-02 06:35] LABS: CALCIUM 8.2 mg/dL (8.5-10.1); CREATININE 0.7 mg/dL (0.6-1.0); EST CRCL DRUG DOSING (CG) 59.96 mL/min; MAGNESIUM 1.8 mg/dL (1.8-2.4); POTASSIUM,K 4.1 mmol/L (3.5-5.1)
[2023-04-02] MEDS ORDERED: Methocarbamol 750 MG TAB PO PRN (07:30)
[2023-04-02] MEDS: Apixaban 5 MG Tab PO SCH ×2 (09:11→20:43)
[2023-04-02] MEDS: Calcium Carbonate/Vitamin D3 1500 MG-400 Units Tab PO SCH (09:11)
[2023-04-02] MEDS: Lidocaine 4% 1 each Patch TOP SCH (09:11)
[2023-04-02] MEDS: Lisinopril 10 MG Tab PO SCH (09:12)
[2023-04-02] MEDS ORDERED: Magnesium Oxide 400 MG Tab PO ONE (10:14)
[2023-04-02] MEDS: Melatonin 3 MG Tab PO SCH (20:43)
[2023-04-03] MEDS: Pantoprazole 40 MG Tab.CR PO SCH (06:30)
[2023-04-03] MEDS: Acetaminophen 500 MG Tab PO SCH (06:30)
[2023-04-03] MEDS: Nystatin Topical Powder 15 GM Bottle TOP SCH (06:31)
[2023-04-03] MEDS: Lisinopril 10 MG Tab PO SCH (08:46)
[2023-04-03] MEDS: Apixaban 5 MG Tab PO SCH (08:46)
[2023-04-03] MEDS: Metoprolol Tartrate 50 MG Tab PO SCH (08:46)
[2023-04-03] MEDS: Calcium Carbonate/Vitamin D3 1500 MG-400 Units Tab PO SCH (08:46)
[2023-04-03 08:47] VITALS: BP 183/95; PULSE 71
[2023-04-03] MEDS: Lidocaine 4% 1 each Patch TOP SCH (08:53)
[2023-04-03] MEDS: oxyCODONE 5 MG Tab PO PRN (08:53)
== END 2023-04-03 09:15 | disposition swing bed (61) | DRG 543 ==
LOC: MW.ED 19:55 → MW.MS 23:22 → OBSVTOIN 03-28 09:22 → MW.MS 03-28 09:30
PROVIDERS: ADMIT Internal Medicine; ATTEND Internal Medicine
DX: M48.56XA Collapsed vertebra, not elsewhere classified, lumbar region, initial encounter for fracture (principal); I47.1 Supraventricular tachycardia; E86.0 Dehydration; S32.019A Unspecified fracture of first lumbar vertebra, initial encounter for closed fracture; S32.029A Unspecified fracture of second lumbar vertebra, initial encounter for closed fracture; R53.1 Weakness; I48.91 Unspecified atrial fibrillation; I10 Essential (primary) hypertension; M54.50 Low back pain, unspecified; Z79.899 Other long term (current) drug therapy; W19.XXXA Unspecified fall, initial encounter; I08.1 Rheumatic disorders of both mitral and tricuspid valves; I48.0 Paroxysmal atrial fibrillation; E83.42 Hypomagnesemia; E87.6 Hypokalemia; K44.9 Diaphragmatic hernia without obstruction or gangrene; E66.09 Other obesity due to excess calories; Z78.9 Other specified health status; Z79.01 Long term (current) use of anticoagulants; Z90.89 Acquired absence of other organs; Z90.710 Acquired absence of both cervix and uterus; Z68.30 Body mass index [BMI] 30.0-30.9, adult
CPT/HCPCS: 36415 ×2; 71045; 72131; 80048; 80053; 83735 ×2; 84100; 85025 ×2; 93005; 96361; 96365; 96366; 96375 ×2; 99285; A9270 ×10; J0153; J2270; J2405; J3480; J3490; J7030; J7050; 82947; 93010; 93306; 97110-GP; 97116-GP; 97162-GP; 97530-GP; 99222; 99231; 99232; 99238; 99291; G0378; J3475

== ENCOUNTER 2023-04-29 21:51 | Observation (INO) | payer MEDICARE ==
[2023-04-29] MEDS ORDERED: Sodium Chloride 0.9% 10 ML Syringe FLUSH PRN (22:27)
[2023-04-29] MEDS ORDERED: Sodium Chloride 0.9% 2.5 ML Syringe FLUSH PRN (22:27)
[2023-04-29] MEDS ORDERED: Sodium Chloride 0.9% 500 ML IV SCH (22:30)
[2023-04-29 22:35] LABS: BASOPHILS PERCENT AUTO 0.2 % (0.0-1.5); EOSINOPHILS ABSOLUTE AUTO 0.1 K/uL (0.0-0.7); EOSINOPHILS PERCENT AUTO 0.7 % (0.0-7.0); HEMOGLOBIN 14.5 g/dL (12.0-16.0); LYMPHOCYTES ABSOLUTE AUTO 1.7 K/uL (0.6-2.4); LYMPHOCYTES PERCENT AUTO 18.7 % (16.0-40.0); MEAN CORPUSCULAR HEMOGLOBIN 30.3 pg (27.0-32.0); MEAN CORPUSCULAR VOLUME 91.9 fL (80.0-98.0); MONOCYTES ABSOLUTE AUTO 0.7 K/uL (0.0-0.8); MONOCYTES PERCENT AUTO 7.7 % (0.0-15.0); NEUTROPHILS ABSOLUTE AUTO 6.5 K/uL (1.4-5.7); NEUTROPHILS PERCENT AUTO 72.7 % (48.0-80.0); NRBC ABSOLUTE 0 K/uL; PLATELET COUNT,PLT 353 K/uL (150-400); RED BLOOD CELL COUNT 4.79 M/uL (4.30-5.90); WHITE BLOOD CELL COUNT,WBC 8.93 K/uL (4.0-11.0)
[2023-04-29 22:39] LABS: INR 1.16 (0.86-1.11)
[2023-04-29 22:45] LABS: A/G RATIO 0.8 (0.9-1.6); ALBUMIN 2.5 g/dL (3.4-5.0); BILIRUBIN TOTAL 0.8 mg/dL (0.2-1.0); CALCIUM 8.3 mg/dL (8.5-10.1); CARBON DIOXIDE,CO2 20.9 mmol/L (21.0-32.0); CREATININE 1.2 mg/dL (0.6-1.0); EST CRCL DRUG DOSING (CG) 34.98 mL/min; POTASSIUM,K 2.7 mmol/L (3.5-5.1); PROTEIN TOTAL,TP 5.5 g/dL (6.4-8.2)
[2023-04-29] MEDS ORDERED: Iopamidol 755 MG/ML 500 ML Multipack Bottle IVPUSH ONE (23:41)
[2023-04-30] MEDS ORDERED: Potassium Chloride 20 MEQ in Premix Bag 1 BAG IV ONE (00:44)
[2023-04-30] MEDS ORDERED: Acetaminophen 500 MG Tab PO ONE (01:14)
[2023-04-30] MEDS ORDERED: Potassium Chloride 20 MEQ Tab.ER PO ONE (02:36)
[2023-04-30] MEDS ORDERED: Sodium Chloride 0.9% 1,000 ML IV SCH (02:45)
[2023-04-30 06:00] LABS: BASOPHILS PERCENT AUTO 0.1 % (0.0-1.5); EOSINOPHILS PERCENT AUTO 0.6 % (0.0-7.0); HEMATOCRIT 39.7 % (36.0-46.0); LYMPHOCYTES ABSOLUTE AUTO 1.6 K/uL (0.6-2.4); LYMPHOCYTES PERCENT AUTO 23.1 % (16.0-40.0); MEAN CORPUSCULAR HEMOGLOBIN 30.2 pg (27.0-32.0); MEAN CORPUSCULAR HGB CONC 32.7 g/dL (31.0-37.0); MEAN CORPUSCULAR VOLUME 92.3 fL (80.0-98.0); MONOCYTES ABSOLUTE AUTO 0.6 K/uL (0.0-0.8); MONOCYTES PERCENT AUTO 9.2 % (0.0-15.0); NEUTROPHILS ABSOLUTE AUTO 4.6 K/uL (1.4-5.7); NRBC ABSOLUTE 0 K/uL; PLATELET COUNT,PLT 286 K/uL (150-400); WHITE BLOOD CELL COUNT,WBC 6.87 K/uL (4.0-11.0)
[2023-04-30 06:24] LABS: CALCIUM 7.8 mg/dL (8.5-10.1); CARBON DIOXIDE,CO2 23.5 mmol/L (21.0-32.0); EST CRCL DRUG DOSING (CG) 41.97 mL/min; MAGNESIUM 1.7 mg/dL (1.8-2.4); POTASSIUM,K 3.1 mmol/L (3.5-5.1)
[2023-04-30] MEDS ORDERED: Potassium Chloride 20 MEQ Tab.ER ONE (06:30)
[2023-04-30] MEDS ORDERED: Magnesium Sulfate/Water 4 GM in Premix Bag 1 BAG IV ONE (08:30)
[2023-04-30] MEDS ORDERED: Magnesium Sulfate (4.06 MEQ/ML) 5 GM/10 ML SDV IV ONE (08:35)
[2023-04-30] MEDS ORDERED: Temazepam 15 MG Cap PO PRN (09:10)
[2023-04-30] MEDS ORDERED: Ondansetron 4 MG Tab.DIS PO PRN (09:10)
[2023-04-30] MEDS ORDERED: Acetaminophen/oxyCODONE 325-5 MG Tab PO PRN (09:10)
[2023-04-30] MEDS ORDERED: Ondansetron 4 MG/2 ML SDV IVPUSH PRN (09:10)
[2023-04-30] MEDS: Potassium Chloride 100 ML IV SCH ×2 (09:11→11:47)
[2023-04-30] MEDS ORDERED: Methocarbamol 750 MG TAB PO PRN (09:23)
[2023-04-30] MEDS ORDERED: DICLOFENAC SODIUM TOP PRN (09:42)
[2023-04-30] MEDS: Apixaban 5 MG Tab PO SCH ×2 (10:45→20:55)
[2023-04-30] MEDS: Lidocaine 4% 1 each Patch TOP SCH (10:45)
[2023-04-30] MEDS: Sertraline 25 MG Tab PO SCH (10:47)
[2023-04-30] MEDS: Metoprolol Tartrate 50 MG Tab PO SCH ×2 (10:47→20:54)
[2023-04-30] MEDS: Lisinopril 10 MG Tab PO SCH (10:57)
[2023-04-30] MEDS: Nystatin Topical Powder 15 GM Bottle TOP SCH ×3 (14:47→21:12)
[2023-04-30 16:14] LABS: APPEARANCE,URINE CLEAR; BILIRUBIN,URINE NEGATIVE (NEGATIVE); COLOR,URINE YELLOW; GLUCOSE,URINE NEGATIVE (NEGATIVE); KETONES,URINE NEGATIVE (NEGATIVE); LEUKOCYTE ESTERASE,URINE NEGATIVE (NEGATIVE); NITRITE,URINE POSITIVE (NEGATIVE); OCCULT BLOOD,URINE NEGATIVE (NEGATIVE); PH,URINE 5.5 (5.0-8.0); PROTEIN,URINE NEGATIVE (NEGATIVE); UROBILINOGEN,URINE 0.2 EU/dL (<2.0)
[2023-04-30 16:26] LABS: BACTERIA,URINE 4+ (NEGATIVE); EPITHELIAL CELLS,URINE RARE (NONE-FEW); MUCUS,URINE LIGHT (NONE-MOD); RBC,URINE 0-2 (0-2/HPF)
[2023-04-30] MEDS: cefTRIAXone 1 GM in Sodium Chloride 0.9% 50 ML IV SCH (17:32)
[2023-04-30] MEDS: oxyCODONE ER 10 MG TAB.ER PO SCH (20:53)
[2023-05-01 05:33] LABS: BASOPHILS PERCENT AUTO 0.3 % (0.0-1.5); EOSINOPHILS ABSOLUTE AUTO 0.2 K/uL (0.0-0.7); EOSINOPHILS PERCENT AUTO 2.9 % (0.0-7.0); HEMATOCRIT 37.4 % (36.0-46.0); HEMOGLOBIN 11.9 g/dL (12.0-16.0); LYMPHOCYTES ABSOLUTE AUTO 1.3 K/uL (0.6-2.4); LYMPHOCYTES PERCENT AUTO 22.5 % (16.0-40.0); MEAN CORPUSCULAR HEMOGLOBIN 29.8 pg (27.0-32.0); MEAN CORPUSCULAR HGB CONC 31.8 g/dL (31.0-37.0); MEAN CORPUSCULAR VOLUME 93.5 fL (80.0-98.0); MONOCYTES ABSOLUTE AUTO 0.5 K/uL (0.0-0.8); MONOCYTES PERCENT AUTO 9.2 % (0.0-15.0); NEUTROPHILS ABSOLUTE AUTO 3.8 K/uL (1.4-5.7); NEUTROPHILS PERCENT AUTO 65.1 % (48.0-80.0); NRBC ABSOLUTE 0 K/uL; PLATELET COUNT,PLT 270 K/uL (150-400); WHITE BLOOD CELL COUNT,WBC 5.78 K/uL (4.0-11.0)
[2023-05-01] MEDS: Nystatin Topical Powder 15 GM Bottle TOP SCH ×3 (05:57→20:59)
[2023-05-01] MEDS: Pantoprazole 40 MG Tab.CR PO SCH ×2 (06:00→06:53)
[2023-05-01 06:09] LABS: CALCIUM 7.9 mg/dL (8.5-10.1); CARBON DIOXIDE,CO2 21.2 mmol/L (21.0-32.0); CREATININE 0.8 mg/dL (0.6-1.0); EST CRCL DRUG DOSING (CG) 52.47 mL/min; POTASSIUM,K 4.2 mmol/L (3.5-5.1)
[2023-05-01] MEDS: Apixaban 5 MG Tab PO SCH ×2 (09:18→20:59)
[2023-05-01] MEDS: oxyCODONE ER 10 MG TAB.ER PO SCH ×2 (09:18→20:59)
[2023-05-01] MEDS: Lisinopril 10 MG Tab PO SCH (09:19)
[2023-05-01] MEDS: Sertraline 25 MG Tab PO SCH (09:19)
[2023-05-01] MEDS: Metoprolol Tartrate 50 MG Tab PO SCH ×2 (09:19→20:59)
[2023-05-01] MEDS: Lidocaine 4% 1 each Patch TOP SCH (09:20)
[2023-05-01] MEDS: Cholecalciferol (Vitamin D3) 25 MCG Tab PO SCH (09:20)
[2023-05-01] MEDS: cefTRIAXone 1 GM in Sodium Chloride 0.9% 50 ML IV SCH (17:31)
[2023-05-02 06:25] LABS: BASOPHILS PERCENT AUTO 0.4 % (0.0-1.5); EOSINOPHILS ABSOLUTE AUTO 0.1 K/uL (0.0-0.7); EOSINOPHILS PERCENT AUTO 2.6 % (0.0-7.0); HEMATOCRIT 35.5 % (36.0-46.0); HEMOGLOBIN 11.1 g/dL (12.0-16.0); LYMPHOCYTES ABSOLUTE AUTO 1.6 K/uL (0.6-2.4); LYMPHOCYTES PERCENT AUTO 29.9 % (16.0-40.0); MEAN CORPUSCULAR HEMOGLOBIN 29.7 pg (27.0-32.0); MEAN CORPUSCULAR HGB CONC 31.3 g/dL (31.0-37.0); MEAN CORPUSCULAR VOLUME 94.9 fL (80.0-98.0); MONOCYTES ABSOLUTE AUTO 0.6 K/uL (0.0-0.8); MONOCYTES PERCENT AUTO 10.4 % (0.0-15.0); NEUTROPHILS PERCENT AUTO 56.7 % (48.0-80.0); NRBC ABSOLUTE 0 K/uL; PLATELET COUNT,PLT 238 K/uL (150-400); RED BLOOD CELL COUNT 3.74 M/uL (4.30-5.90); WHITE BLOOD CELL COUNT,WBC 5.31 K/uL (4.0-11.0)
[2023-05-02] MEDS: Pantoprazole 40 MG Tab.CR PO SCH ×2 (06:25→06:30)
[2023-05-02] MEDS: Nystatin Topical Powder 15 GM Bottle TOP SCH ×2 (06:25→14:04)
[2023-05-02 06:42] LABS: CREATININE 0.9 mg/dL (0.6-1.0); EST CRCL DRUG DOSING (CG) 46.64 mL/min
[2023-05-02] MEDS: Cholecalciferol (Vitamin D3) 25 MCG Tab PO SCH (09:04)
[2023-05-02] MEDS: oxyCODONE ER 10 MG TAB.ER PO SCH (09:05)
[2023-05-02] MEDS: Lisinopril 10 MG Tab PO SCH (09:05)
[2023-05-02] MEDS: Apixaban 5 MG Tab PO SCH (09:05)
[2023-05-02] MEDS: Metoprolol Tartrate 50 MG Tab PO SCH (09:06)
[2023-05-02] MEDS: Lidocaine 4% 1 each Patch TOP SCH (09:07)
[2023-05-02] MEDS: Sertraline 25 MG Tab PO SCH (09:21)
[2023-05-02 17:16] VITALS: PULSE 71
[2023-05-02 18:25] VITALS: BP 150/75
== END 2023-05-02 18:10 | disposition home health service (06) ==
LOC: MW.ED 21:51 → MW.MS 04-30 02:37
PROVIDERS: ADMIT Internal Medicine; ATTEND Internal Medicine
DX: R10.9 Unspecified abdominal pain (principal); N30.00 Acute cystitis without hematuria; R19.7 Diarrhea, unspecified; R11.10 Vomiting, unspecified; I48.0 Paroxysmal atrial fibrillation; E83.42 Hypomagnesemia; E87.6 Hypokalemia; R53.81 Other malaise; M54.50 Low back pain, unspecified; S32.010D Wedge compression fracture of first lumbar vertebra, subsequent encounter for fracture with routine healing; N17.9 Acute kidney failure, unspecified; I10 Essential (primary) hypertension; I47.1 Supraventricular tachycardia; E78.5 Hyperlipidemia, unspecified; K21.9 Gastro-esophageal reflux disease without esophagitis; M19.90 Unspecified osteoarthritis, unspecified site; F32.A Depression, unspecified; Z20.822 Contact with and (suspected) exposure to COVID-19; Z79.01 Long term (current) use of anticoagulants; Z79.899 Other long term (current) drug therapy; Z90.710 Acquired absence of both cervix and uterus; Z90.89 Acquired absence of other organs
CPT/HCPCS: 36415; 71045; 74177; 80048; 80053; 81001; 83735; 83880; 84484; 85025; 85610; 87045; 87046; 87086; 87324; 87449; 87899; 93005; 96361; 96365; 96366; 96367; 96368; 96375; 97162; 97530; 99285; A9270; G0378; J0696; J2405; J3475; J3480; J3490; J7030; J7040; Q9967; U0002; 87088; 87186; 93010; 99284

== ENCOUNTER 2023-06-23 09:25 | Inpatient (IN) | payer MEDICARE ==
[2023-06-23] MEDS ORDERED: Sodium Chloride 0.9% 500 ML IV ONE (09:34)
[2023-06-23] MEDS ORDERED: Sodium Chloride 0.9% 10 ML Syringe FLUSH PRN (09:37)
[2023-06-23] MEDS ORDERED: Sodium Chloride 0.9% 2.5 ML Syringe FLUSH PRN (09:37)
[2023-06-23] MEDS ORDERED: Sodium Chloride 0.9% 500 ML IV SCH (09:45)
[2023-06-23 10:16] LABS: BASOPHILS PERCENT AUTO 0.4 % (0.0-1.5); EOSINOPHILS PERCENT AUTO 0.6 % (0.0-7.0); HEMATOCRIT 41.7 % (36.0-46.0); HEMOGLOBIN 13.6 g/dL (12.0-16.0); LYMPHOCYTES ABSOLUTE AUTO 1.5 K/uL (0.6-2.4); LYMPHOCYTES PERCENT AUTO 27.6 % (16.0-40.0); MEAN CORPUSCULAR HEMOGLOBIN 32.2 pg (27.0-32.0); MEAN CORPUSCULAR HGB CONC 32.6 g/dL (31.0-37.0); MEAN CORPUSCULAR VOLUME 98.8 fL (80.0-98.0); MONOCYTES ABSOLUTE AUTO 0.6 K/uL (0.0-0.8); MONOCYTES PERCENT AUTO 11.2 % (0.0-15.0); NEUTROPHILS ABSOLUTE AUTO 3.2 K/uL (1.4-5.7); NEUTROPHILS PERCENT AUTO 60.2 % (48.0-80.0); NRBC ABSOLUTE 0 K/uL; PLATELET COUNT,PLT 347 K/uL (150-400); RED BLOOD CELL COUNT 4.22 M/uL (4.30-5.90); WHITE BLOOD CELL COUNT,WBC 5.26 K/uL (4.0-11.0)
[2023-06-23] MEDS ORDERED: Phenazopyridine 200 MG Tab PO ONE (10:49)
[2023-06-23 10:52] LABS: A/G RATIO 0.8 (0.9-1.6); ALBUMIN 2.3 g/dL (3.4-5.0); BILIRUBIN TOTAL 0.5 mg/dL (0.2-1.0); CALCIUM 8.4 mg/dL (8.5-10.1); CREATININE 1.1 mg/dL (0.6-1.0); EST CRCL DRUG DOSING (CG) 38.16 mL/min; POTASSIUM,K 3.2 mmol/L (3.5-5.1); PROTEIN TOTAL,TP 5.1 g/dL (6.4-8.2); TSH ULTRASENSITIVE 0.99 uIU/mL (0.36-3.74)
[2023-06-23] MEDS ORDERED: Sodium Chloride 0.9% 1,000 ML IV ONE (11:20)
[2023-06-23 12:12] LABS: APPEARANCE,URINE SLT CLOUDY; BILIRUBIN,URINE NEGATIVE (NEGATIVE); COLOR,URINE YELLOW; GLUCOSE,URINE NEGATIVE (NEGATIVE); KETONES,URINE NEGATIVE (NEGATIVE); LEUKOCYTE ESTERASE,URINE NEGATIVE (NEGATIVE); NITRITE,URINE POSITIVE (NEGATIVE); OCCULT BLOOD,URINE NEGATIVE (NEGATIVE); PROTEIN,URINE 30 mg/dL (NEGATIVE)
[2023-06-23 12:19] LABS: BACTERIA,URINE 3+ (NEGATIVE); CALCIUM OXALATE CRYSTALS,URINE FEW (NEGATIVE); EPITHELIAL CELLS,URINE MODERATE (NONE-FEW); RBC,URINE 0-2 (0-2/HPF)
[2023-06-23] MEDS ORDERED: Iopamidol 755 Mg/ML 100 ML Bottle IVPUSH ONE (12:59)
[2023-06-23] MEDS ORDERED: cefTRIAXone 1 GM in Sodium Chloride 0.9% 50 ML IV ONE (13:58)
[2023-06-23] MEDS ORDERED: Potassium Chloride 10 MEQ Tab.ER PO ONE (14:22)
[2023-06-23] MEDS: Melatonin 3 MG Tab PO SCH (20:52)
[2023-06-23] MEDS: Metoprolol Tartrate 50 MG Tab PO SCH (20:52)
[2023-06-23] MEDS ORDERED: Apixaban 5 MG Tab PO SCH (21:00)
[2023-06-24] MEDS: Pantoprazole 40 MG Tab.CR PO SCH (06:39)
[2023-06-24 06:42] LABS: BASOPHILS PERCENT AUTO 0.5 % (0.0-1.5); EOSINOPHILS ABSOLUTE AUTO 0.1 K/uL (0.0-0.7); EOSINOPHILS PERCENT AUTO 2.4 % (0.0-7.0); HEMATOCRIT 38.4 % (36.0-46.0); HEMOGLOBIN 12.2 g/dL (12.0-16.0); LYMPHOCYTES ABSOLUTE AUTO 1.2 K/uL (0.6-2.4); LYMPHOCYTES PERCENT AUTO 30.1 % (16.0-40.0); MEAN CORPUSCULAR HEMOGLOBIN 31.4 pg (27.0-32.0); MEAN CORPUSCULAR HGB CONC 31.8 g/dL (31.0-37.0); MONOCYTES ABSOLUTE AUTO 0.4 K/uL (0.0-0.8); MONOCYTES PERCENT AUTO 10.8 % (0.0-15.0); NEUTROPHILS ABSOLUTE AUTO 2.3 K/uL (1.4-5.7); NEUTROPHILS PERCENT AUTO 56.2 % (48.0-80.0); NRBC ABSOLUTE 0 K/uL; PLATELET COUNT,PLT 300 K/uL (150-400); RED BLOOD CELL COUNT 3.88 M/uL (4.30-5.90); WHITE BLOOD CELL COUNT,WBC 4.09 K/uL (4.0-11.0)
[2023-06-24 07:02] LABS: CALCIUM 8.2 mg/dL (8.5-10.1); CARBON DIOXIDE,CO2 26.1 mmol/L (21.0-32.0); CREATININE 0.9 mg/dL (0.6-1.0); EST CRCL DRUG DOSING (CG) 42.72 mL/min; POTASSIUM,K 2.7 mmol/L (3.5-5.1)
[2023-06-24] MEDS ORDERED: VANCOmycin 1.25 GM/250 ML 1.25 GM in Premix Bag 1 BAG IV ONE (08:00)
[2023-06-24] MEDS: Sertraline 25 MG Tab PO SCH (08:21)
[2023-06-24] MEDS: Metoprolol Tartrate 50 MG Tab PO SCH ×2 (08:21→20:16)
[2023-06-24] MEDS ORDERED: Potassium Chloride 20 MEQ Tab.ER PO ONE ×2 (08:25→14:57)
[2023-06-24] MEDS: Lisinopril 10 MG Tab PO SCH (08:25)
[2023-06-24] MEDS: Potassium Chloride 20 MEQ in Premix Bag 1 BAG IV SCH ×2 (10:48→14:18)
[2023-06-24] MEDS: cefTRIAXone 1 GM in Sodium Chloride 0.9% 50 ML IV SCH (14:17)
[2023-06-24] MEDS ORDERED: VANCOmycin 1.25 GM/250 ML 1.25 GM in Premix Bag 1 BAG IV SCH (20:00)
[2023-06-24] MEDS: Melatonin 3 MG Tab PO SCH (20:16)
[2023-06-25 06:18] LABS: BASOPHILS PERCENT AUTO 0.7 % (0.0-1.5); EOSINOPHILS ABSOLUTE AUTO 0.2 K/uL (0.0-0.7); EOSINOPHILS PERCENT AUTO 3.8 % (0.0-7.0); HEMOGLOBIN 11.4 g/dL (12.0-16.0); LYMPHOCYTES ABSOLUTE AUTO 1.6 K/uL (0.6-2.4); LYMPHOCYTES PERCENT AUTO 37.1 % (16.0-40.0); MEAN CORPUSCULAR HEMOGLOBIN 31.6 pg (27.0-32.0); MEAN CORPUSCULAR HGB CONC 31.7 g/dL (31.0-37.0); MEAN CORPUSCULAR VOLUME 99.7 fL (80.0-98.0); MONOCYTES ABSOLUTE AUTO 0.5 K/uL (0.0-0.8); NEUTROPHILS PERCENT AUTO 47.4 % (48.0-80.0); NRBC ABSOLUTE 0 K/uL; PLATELET COUNT,PLT 279 K/uL (150-400); RED BLOOD CELL COUNT 3.61 M/uL (4.30-5.90); WHITE BLOOD CELL COUNT,WBC 4.18 K/uL (4.0-11.0)
[2023-06-25] MEDS: Pantoprazole 40 MG Tab.CR PO SCH ×2 (06:18→07:16)
[2023-06-25 06:50] LABS: A/G RATIO 0.9 (0.9-1.6); ALBUMIN 2.1 g/dL (3.4-5.0); BILIRUBIN TOTAL 0.4 mg/dL (0.2-1.0); CALCIUM 8.4 mg/dL (8.5-10.1); CARBON DIOXIDE,CO2 23.2 mmol/L (21.0-32.0); CREATININE 0.8 mg/dL (0.6-1.0); EST CRCL DRUG DOSING (CG) 48.06 mL/min; MAGNESIUM 1.6 mg/dL (1.8-2.4); PHOSPHORUS 3.2 mg/dL (2.6-4.7); POTASSIUM,K 3.5 mmol/L (3.5-5.1); PROTEIN TOTAL,TP 4.5 g/dL (6.4-8.2)
[2023-06-25] MEDS ORDERED: Magnesium Sulfate/Water 2 GM in Premix Bag 1 BAG IV ONE (07:15)
[2023-06-25] MEDS: Metoprolol Tartrate 50 MG Tab PO SCH ×2 (08:58→21:03)
[2023-06-25] MEDS: Lisinopril 10 MG Tab PO SCH (08:59)
[2023-06-25] MEDS: Sertraline 25 MG Tab PO SCH (09:00)
[2023-06-25] MEDS: cefTRIAXone 1 GM in Sodium Chloride 0.9% 50 ML IV SCH (14:08)
[2023-06-25] MEDS ORDERED: Hydrochlorothiazide 12.5 MG Cap PO SCH (17:45)
[2023-06-25] MEDS ORDERED: amLODIPine 5 MG Tab PO ONE (17:46)
[2023-06-25] MEDS: Melatonin 3 MG Tab PO SCH (21:03)
[2023-06-25] MEDS ORDERED: Acetaminophen 325 MG Tab PO PRN (22:58)
[2023-06-26 06:07] LABS: BASOPHILS PERCENT AUTO 0.2 % (0.0-1.5); EOSINOPHILS ABSOLUTE AUTO 0.1 K/uL (0.0-0.7); EOSINOPHILS PERCENT AUTO 2.9 % (0.0-7.0); HEMATOCRIT 36.5 % (36.0-46.0); HEMOGLOBIN 11.7 g/dL (12.0-16.0); LYMPHOCYTES ABSOLUTE AUTO 1.8 K/uL (0.6-2.4); LYMPHOCYTES PERCENT AUTO 39.5 % (16.0-40.0); MEAN CORPUSCULAR HEMOGLOBIN 31.7 pg (27.0-32.0); MEAN CORPUSCULAR HGB CONC 32.1 g/dL (31.0-37.0); MEAN CORPUSCULAR VOLUME 98.9 fL (80.0-98.0); MONOCYTES ABSOLUTE AUTO 0.5 K/uL (0.0-0.8); MONOCYTES PERCENT AUTO 12.2 % (0.0-15.0); NEUTROPHILS PERCENT AUTO 45.2 % (48.0-80.0); NRBC ABSOLUTE 0 K/uL; PLATELET COUNT,PLT 276 K/uL (150-400); RED BLOOD CELL COUNT 3.69 M/uL (4.30-5.90); WHITE BLOOD CELL COUNT,WBC 4.43 K/uL (4.0-11.0)
[2023-06-26] MEDS: Pantoprazole 40 MG Tab.CR PO SCH (06:32)
[2023-06-26 06:36] LABS: A/G RATIO 0.8 (0.9-1.6); ALBUMIN 2.1 g/dL (3.4-5.0); BILIRUBIN TOTAL 0.5 mg/dL (0.2-1.0); CALCIUM 8.1 mg/dL (8.5-10.1); CARBON DIOXIDE,CO2 23.6 mmol/L (21.0-32.0); CREATININE 0.8 mg/dL (0.6-1.0); EST CRCL DRUG DOSING (CG) 48.06 mL/min; MAGNESIUM 1.9 mg/dL (1.8-2.4); POTASSIUM,K 3.4 mmol/L (3.5-5.1); PROTEIN TOTAL,TP 4.6 g/dL (6.4-8.2)
[2023-06-26] MEDS ORDERED: Potassium Chloride 20 MEQ Tab.ER PO ONE (07:15)
[2023-06-26 08:03] VITALS: PULSE 67
[2023-06-26] MEDS ORDERED: Acetaminophen 500 MG Tab PO ONE (08:23)
[2023-06-26] MEDS: Lisinopril 10 MG Tab PO SCH (08:25)
[2023-06-26] MEDS: Metoprolol Tartrate 50 MG Tab PO SCH (08:26)
[2023-06-26] MEDS: Sertraline 25 MG Tab PO SCH (08:26)
[2023-06-26] MEDS: Nystatin Topical Powder 15 GM Bottle TOP SCH ×2 (08:37→14:01)
[2023-06-26 12:43] VITALS: BP 176/114
[2023-06-26] MEDS: cefTRIAXone 1 GM in Sodium Chloride 0.9% 50 ML IV SCH (13:56)
[2023-06-26] MEDS ORDERED: Nystatin Topical Powder 15 GM Bottle TOP SCH (14:00)
== END 2023-06-26 15:45 | disposition home health service (06) | DRG 872 ==
LOC: MW.ED 09:25 → MW.MS 15:02 → EEVIPCON 06-24 15:35 → OBSVTOIN 06-24 15:35 → MW.MS 06-24 16:28
PROVIDERS: ADMIT Internal Medicine; ATTEND Internal Medicine
DX: N39.0 Urinary tract infection, site not specified (principal); A41.9 Sepsis, unspecified organism; E86.0 Dehydration; N30.00 Acute cystitis without hematuria; I47.1 Supraventricular tachycardia; K52.9 Noninfective gastroenteritis and colitis, unspecified; I48.91 Unspecified atrial fibrillation; I10 Essential (primary) hypertension; E83.42 Hypomagnesemia; K44.9 Diaphragmatic hernia without obstruction or gangrene; E87.6 Hypokalemia; F32.A Depression, unspecified; Z87.442 Personal history of urinary calculi; Z79.899 Other long term (current) drug therapy; Z90.89 Acquired absence of other organs; Z90.710 Acquired absence of both cervix and uterus; Z79.01 Long term (current) use of anticoagulants; Z79.891 Long term (current) use of opiate analgesic; Z79.1 Long term (current) use of non-steroidal anti-inflammatories (NSAID)
CPT/HCPCS: 36415 ×2; 71275; 80048; 80053; 81001; 83605 ×2; 83690; 83880; 84443; 84484; 85025 ×2; 85379; 87040 ×2; 87077; 87154; 87186; 93005; 96361; 96365; 96366; 96367; 96376; 99285; A9270 ×9; G0378 ×3; J0696 ×2; J3370; J3480 ×2; J3490 ×2; J7030; J7040; J7050; Q9967; 80202; 83735; 84100; 93010; 99284; J3475

== ENCOUNTER 2023-06-27 18:39 | Emergency (ER) | payer MEDICARE ==
[2023-06-27 19:28] LABS: BASOPHILS PERCENT AUTO 0.5 % (0.0-1.5); EOSINOPHILS ABSOLUTE AUTO 0.1 K/uL (0.0-0.7); EOSINOPHILS PERCENT AUTO 0.8 % (0.0-7.0); HEMATOCRIT 42.3 % (36.0-46.0); HEMOGLOBIN 14.1 g/dL (12.0-16.0); LYMPHOCYTES ABSOLUTE AUTO 2.1 K/uL (0.6-2.4); LYMPHOCYTES PERCENT AUTO 32.4 % (16.0-40.0); MEAN CORPUSCULAR HEMOGLOBIN 32.3 pg (27.0-32.0); MEAN CORPUSCULAR HGB CONC 33.3 g/dL (31.0-37.0); MONOCYTES ABSOLUTE AUTO 0.8 K/uL (0.0-0.8); MONOCYTES PERCENT AUTO 11.9 % (0.0-15.0); NEUTROPHILS ABSOLUTE AUTO 3.4 K/uL (1.4-5.7); NEUTROPHILS PERCENT AUTO 54.4 % (48.0-80.0); NRBC ABSOLUTE 0 K/uL; PLATELET COUNT,PLT 315 K/uL (150-400); RED BLOOD CELL COUNT 4.36 M/uL (4.30-5.90); WHITE BLOOD CELL COUNT,WBC 6.32 K/uL (4.0-11.0)
[2023-06-27 20:02] LABS: A/G RATIO 0.9 (0.9-1.6); ALBUMIN 2.7 g/dL (3.4-5.0); BILIRUBIN TOTAL 0.7 mg/dL (0.2-1.0); CALCIUM 8.8 mg/dL (8.5-10.1); CARBON DIOXIDE,CO2 22.4 mmol/L (21.0-32.0); CREATININE 0.9 mg/dL (0.6-1.0); EST CRCL DRUG DOSING (CG) 46.64 mL/min; POTASSIUM,K 3.5 mmol/L (3.5-5.1); PROTEIN TOTAL,TP 5.6 g/dL (6.4-8.2)
[2023-06-27 23:56] VITALS: BP 136/97; PULSE 88
== END 2023-06-27 23:56 | disposition home or self-care (01) ==
LOC: MW.ED 18:39
DX: N39.0 Urinary tract infection, site not specified (principal); R19.7 Diarrhea, unspecified; I48.91 Unspecified atrial fibrillation; I10 Essential (primary) hypertension; Z79.01 Long term (current) use of anticoagulants; Z79.899 Other long term (current) drug therapy
CPT/HCPCS: 36415; 80053; 85025; 87045; 87046; 87324; 87449; 87899; 93005; 93010; 99283; 99284

== ENCOUNTER 2024-06-14 22:32 | Emergency (ER) | payer MEDICARE ==
[2024-06-14 23:23] LABS: BASOPHILS ABSOLUTE AUTO 0.04 K/uL (0.00-0.20); BASOPHILS PERCENT AUTO 0.5 % (0.0-1.0); EOSINOPHILS ABSOLUTE AUTO 0.06 K/uL (0.00-0.45); EOSINOPHILS PERCENT AUTO 0.8 % (0.0-6.0); HEMATOCRIT 44.9 % (37.0-47.0); HEMOGLOBIN 14.6 g/dL (12.0-16.0); IMMATURE GRAN ABSOLUTE AUTO 0.03 K/uL (0.00-0.05); IMMATURE GRAN PERCENT AUTO 0.4 % (0.0-0.4); LYMPHOCYTES ABSOLUTE AUTO 1.55 K/uL (1.00-4.80); LYMPHOCYTES PERCENT AUTO 20.4 % (24.0-44.0); MEAN CORPUSCULAR HEMOGLOBIN 29.7 pg (28.0-32.0); MEAN CORPUSCULAR HGB CONC 32.5 g/dL (32.0-36.0); MEAN CORPUSCULAR VOLUME 91.3 fL (83.0-99.0); MEAN PLATELET VOLUME 9.3 fL (9.4-12.3); MONOCYTES ABSOLUTE AUTO 0.52 K/uL (0.00-0.80); MONOCYTES PERCENT AUTO 6.8 % (0.0-8.0); NEUTROPHILS PERCENT AUTO 71.1 % (41.0-71.0); PLATELET COUNT,PLT 325 K/uL (150-400); RED BLOOD CELL COUNT 4.92 M/uL (4.10-5.30)
[2024-06-14 23:47] LABS: A/G RATIO 1.1 (0.9-1.6); ALBUMIN 3.8 g/dL (3.4-5.0); BILIRUBIN TOTAL 0.8 mg/dL (0.2-1.0); CALCIUM 9.5 mg/dL (8.5-10.1); CARBON DIOXIDE,CO2 24.2 mmol/L (21.0-32.0); CREATININE 0.9 mg/dL (0.6-1.0); EST CRCL DRUG DOSING (CG) 45.92 mL/min; POTASSIUM,K 4.1 mmol/L (3.5-5.1); PROTEIN TOTAL,TP 7.2 g/dL (6.4-8.2)
[2024-06-15] MEDS: Lidocaine 4% 1 each Patch TOP ONE (00:15)
[2024-06-15] MEDS: Sodium Chloride 0.9% 2.5 ML Syringe FLUSH PRN (00:15)
[2024-06-15] MEDS: Sodium Chloride 0.9% 10 ML Syringe FLUSH PRN (00:15)
[2024-06-15] MEDS: Iopamidol 755 MG/ML 500 ML Multipack Bottle IVPUSH ONE (00:39)
[2024-06-15 00:43] LABS: BILIRUBIN,URINE NEGATIVE (NEGATIVE); COLOR,URINE YELLOW; GLUCOSE,URINE NEGATIVE (NEGATIVE); KETONES,URINE NEGATIVE (NEGATIVE); LEUKOCYTE ESTERASE,URINE NEGATIVE (NEGATIVE); NITRITE,URINE POSITIVE (NEGATIVE); OCCULT BLOOD,URINE NEGATIVE (NEGATIVE); PROTEIN,URINE NEGATIVE (NEGATIVE); UROBILINOGEN,URINE 0.2 EU/dL (<2.0)
[2024-06-15 00:52] LABS: APPEARANCE,URINE HAZY
[2024-06-15 00:53] LABS: BACTERIA,URINE 3+ (NEGATIVE); EPITHELIAL CELLS,URINE RARE (NONE-FEW); RBC,URINE 0-1 (0-2/HPF); WBC,URINE 0-2 (0-5/HPF)
[2024-06-15] MEDS: cefTRIAXone 1 GM in Sodium Chloride 0.9% 50 ML IV ONE (01:20)
[2024-06-15] MEDS: Morphine 4 MG/ML Syringe IVPUSH ONE (01:20)
[2024-06-15 01:28] VITALS: PULSE 88
[2024-06-15 03:05] VITALS: BP 172/116
== END 2024-06-15 03:03 | disposition home or self-care (01) ==
LOC: MW.ED 22:32
DX: N12 Tubulo-interstitial nephritis, not specified as acute or chronic (principal); I10 Essential (primary) hypertension; I48.91 Unspecified atrial fibrillation; Z90.710 Acquired absence of both cervix and uterus; Z79.899 Other long term (current) drug therapy; Z79.01 Long term (current) use of anticoagulants
CPT/HCPCS: 36415; 71045; 74177; 80053; 81001; 83605; 84484; 85025; 85610; 93005; 96365; 96375; 99285; A9270; J0696; J2270; J3490; Q9967; 93010

== ENCOUNTER 2024-06-25 01:12 | Emergency (ER) | payer MEDICARE ==
[2024-06-25] MEDS: Sodium Chloride 0.9% 10 ML Syringe FLUSH PRN (01:25)
[2024-06-25] MEDS: fentaNYL 50 MCG/ML SDV IVPUSH ONE (01:25)
[2024-06-25] MEDS: Sodium Chloride 0.9% 1,000 ML IV ONE ×2 (01:25→02:24)
[2024-06-25] MEDS: Sodium Chloride 0.9% 2.5 ML Syringe FLUSH PRN (01:25)
[2024-06-25] MEDS: Famotidine 20 MG/2 ML SDV IVPUSH ONE (01:28)
[2024-06-25] MEDS: Ondansetron 4 MG/2 ML SDV IVPUSH ONE ×2 (01:28→02:51)
[2024-06-25 01:35] LABS: BASOPHILS ABSOLUTE AUTO 0.03 K/uL (0.00-0.20); BASOPHILS PERCENT AUTO 0.2 % (0.0-1.0); EOSINOPHILS ABSOLUTE AUTO 0.01 K/uL (0.00-0.45); EOSINOPHILS PERCENT AUTO 0.1 % (0.0-6.0); HEMATOCRIT 47.8 % (37.0-47.0); HEMOGLOBIN 16.1 g/dL (12.0-16.0); IMMATURE GRAN ABSOLUTE AUTO 0.03 K/uL (0.00-0.05); IMMATURE GRAN PERCENT AUTO 0.2 % (0.0-0.4); LYMPHOCYTES ABSOLUTE AUTO 2.36 K/uL (1.00-4.80); LYMPHOCYTES PERCENT AUTO 19.6 % (24.0-44.0); MEAN CORPUSCULAR HEMOGLOBIN 29.4 pg (28.0-32.0); MEAN CORPUSCULAR HGB CONC 33.7 g/dL (32.0-36.0); MEAN CORPUSCULAR VOLUME 87.4 fL (83.0-99.0); MEAN PLATELET VOLUME 10.4 fL (9.4-12.3); MONOCYTES ABSOLUTE AUTO 1.16 K/uL (0.00-0.80); MONOCYTES PERCENT AUTO 9.7 % (0.0-8.0); NEUTROPHILS ABSOLUTE AUTO 8.43 K/uL (1.80-7.70); NEUTROPHILS PERCENT AUTO 70.2 % (41.0-71.0); PLATELET COUNT,PLT 539 K/uL (150-400); RED BLOOD CELL COUNT 5.47 M/uL (4.10-5.30); WHITE BLOOD CELL COUNT,WBC 12.02 K/uL (3.9-11.3)
[2024-06-25 01:48] LABS: INR 1.1 (0.86-1.11); PTT,PARTIAL THROMBOPLSTIN TIME 24.2 SEC (23.9-30.7)
[2024-06-25 02:04] LABS: A/G RATIO 0.9 (0.9-1.6); ALBUMIN 3.6 g/dL (3.4-5.0); BILIRUBIN TOTAL 0.9 mg/dL (0.2-1.0); CALCIUM 9.7 mg/dL (8.5-10.1); CREATININE 1.9 mg/dL (0.6-1.0); EST CRCL DRUG DOSING (CG) 21.75 mL/min; POTASSIUM,K 3.8 mmol/L (3.5-5.1); PROTEIN TOTAL,TP 7.5 g/dL (6.4-8.2)
[2024-06-25] MEDS: Heparin Sodium 5,000 Units/ML Vial IVPUSH ONE (02:10)
[2024-06-25] MEDS: Heparin Sodium/0.45% NaCl 500 ML IV SCH (02:11)
[2024-06-25] MEDS: Morphine 4 MG/ML Syringe IVPUSH ONE (02:30)
[2024-06-25] MEDS: Diltiazem 25 MG/5 ML SDV IVPUSH ONE (02:50)
[2024-06-25 03:51] VITALS: BP 138/89; PULSE 86
== END 2024-06-25 04:40 ==
LOC: MW.ED 01:12
DX: I70.8 Atherosclerosis of other arteries (principal); I48.91 Unspecified atrial fibrillation; I10 Essential (primary) hypertension; Z75.8 Other problems related to medical facilities and other health care; Z90.710 Acquired absence of both cervix and uterus; Z79.01 Long term (current) use of anticoagulants; Z79.899 Other long term (current) drug therapy
CPT/HCPCS: 36415; 80053; 82550; 83605; 83880; 84484; 85025; 85610; 85730; 93005; 93925; 96361; 96365; 96366; 96375; 99285; J1644; J2270; J2405; J3010; J3490; J7030; 93010